=== PATIENT | female | born 1935 | race Caucasian/White ===

== ENCOUNTER 2017-01-02 07:39 | Inpatient (IN) ==
[2017-01-02] MEDS ORDERED: Furosemide 20 MG TABLET PO PRN (10:29)
--- NOTE | 2017-01-02 10:40 | History & Physical Report ---
Date of Encounter: 01/02/17 Time of Encounter: 10:37 24 Hour HP Update - Instructions Instructions: If the History and Physical is less than 30 days old and was completed prior to A.M. admission and or procedure and has NOT been updated on calendar day of procedure please complete this update prior to performing procedure. - Update Patient reports changes in Medical Condition: No Changes in examination, assessment, or condition: No Changes in Medication: No Preop tests/diagnostics Reviewed: Yes - Attending Attestation Please refer to Dr. Buckley's eCW encounter from 12/28/16 for H&P. Pt with PAF, HTN, SSS, HLD, s/p PPM. Admitted for antiarrhythmic initiation. Hx of failed Rythmol and Sotalol 120mg was stopped due to breakthrough PAF and pauses, but now has PPM. Will start increased dose of Sotalol 180mg [id number]. Monitor for 5 doses. Baseline EKG SR with RBBB, QRS 151, QT/QTc 423ms/425ms. Pt is anticoagulated on Coumadin [facility]. Reports INR has not been <2 in the past month and this was confirmed. Check INR today, CBC and BMP. Daily EKGs to monitor QTc <500ms. Pt denies any acute complaints. Prior CV testing: TTE 09/01/2016 ([place]): LVEF 60-65%. Moderate mitral regurgitation. Moderate tricuspid regurgitation. RVSP 44 mmHg. Mild left atrial enlargement. Pharmacological nuclear stress test 11/04/2016 ([place]): No evidence of ischemia. Gated EF 64%. Holter monitor 12/22/2015: Average heart rate 61. Occasional PVCs and PACs. 2 brief episodes of SVT, longest 8 beats. Morphology consistent with atrial tachycardia. [facility] 03/2014: Normal coronary arteries. EF 65%.
[2017-01-02 11:43] LABS: Basophils # 0.1 K/mcL (0.0-0.2); Basophils % 0.5 %; Eosinophils # 0.3 K/mcL (0.0-0.6); Eosinophils % 2.7 %; Hematocrit 40.5 % (35.3-44.9); Hemoglobin 12.9 g/dL (11.5-15.4); Immature Granulocytes % 0.4 % (0-4); Lymphocytes # 2.9 K/mcL (0.6-4.6); Lymphocytes % 30.2 %; Mean Corpuscular HGB Conc 31.9 g/dL (31.6-35.5); Mean Corpuscular Hemoglobin 29.6 pg (28.0-33.3); Mean Corpuscular Volume 92.9 fL (83.0-100.0); Mean Platelet Volume 10.3 fL (9.4-12.4); Monocytes # 0.7 K/mcL (0.0-1.3); Monocytes % 7.3 %; Neutrophils # 5.7 K/mcL (1.6-8.9); Platelet Count 195 K/mcL (140-400); Red Blood Count 4.36 M/mcL (3.82-4.97); Red Cell Distribution Width 14.4 % (11.5-14.5); Segmented Neutrophils % 58.9 %
[2017-01-02 11:44] LABS: INR 2.3; Prothrombin Time 25.6 Seconds (9.4-12.1)
[2017-01-02 13:10] LABS: BUN/Creatinine Ratio 17 (6-26); Blood Urea Nitrogen 13 mg/dL (7-20); Calcium 9.7 mg/dL (8.6-10.8); Carbon Dioxide 26 mEq/L (19-29); Chloride 105 mEq/L (98-109); Glucose 83 mg/dL (70-99); Osmolality,Calculated 289 (280-300); Potassium 4.7 mEq/L (3.5-4.5); Sodium 140 mEq/L (136-145); eGFR For African Americans > 60 (> 60); eGFR For Non-African Americans > 60 (> 60)
--- NOTE | 2017-01-02 17:34 | Electrocardiograph Report ---
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
[2017-01-02] MEDS: *HR* Warfarin 3 MG TABLET PO SCH (17:37)
[2017-01-02] MEDS ORDERED: Warfarin perPT PO PRN (18:00)
[2017-01-02] MEDS: Cholecalciferol (D-3) 1,000 UNIT TABLET PO SCH (22:19)
[2017-01-03 05:07] LABS: INR 2.4; Prothrombin Time 26.6 Seconds (9.4-12.1)
[2017-01-03] MEDS: Cholecalciferol (D-3) 1,000 UNIT TABLET PO SCH ×2 (09:02→21:25)
[2017-01-03] MEDS: amLODIPine 5 MG TABLET PO SCH (09:02)
--- NOTE | 2017-01-03 10:54 | Cardiology Progress Note ---
Date of Encounter: 01/03/17 Time of Encounter: 10:51 Assessment and Plan (1) PAF (paroxysmal atrial fibrillation) Current Visit: Yes Status: Acute Previously on Sotalol, stopped to due pauses, now s/p PPM. Initiating Sotalol at higher dose 180mg Q12 hours. Pt has received 3 doses. QTc this AM 452ms. Decreased Lopressor from 100mg BID to 50mg BID with Sotalol initiation-- tolerating well. 24 hour tele AVG HR 61. Appears to be maintaining SR. Anticoagulated on Coumadin, INR 2.4. INR has been therapeutic >30 days, managed by [facility]. CBC and BMP stable. Monitor for total of 5 doses. Anticipate discharge home tomorrow AM. Pt reports dyspnea since PPM placement. Will order CXR. (2) Encounter for monitoring anti-arrhythmic therapy Current Visit: Yes Status: Acute As above. Discussion w patient/family: The assessment and plan as outlined above was discussed with the patient and/or family members who expressed understanding and agreement. All questions were answered. Thank you for involving us in the care of your patient. Please call with any questions. I will discuss all the above with Dr. Deny Buckley and make changes as necessary. Subjective Principal diagnosis: PAF, antiarrhythmic initation Interval history: Pt reports feeling "okay". States she felt some heart fluttering a little earlier. States since PPM in October she has been more short of breath. Has received 3 doses of Sotalol 180mg. EKG this AM QTc 452ms. Objective Vital Signs, Last 4 Hours Temp Pulse Resp BP Pulse Ox 01/03/17 07:41 98.6 F 60 16 138/63 98 Vital Signs Temp Pulse Resp BP Pulse Ox 01/03/17 07:41 98.6 F 60 16 138/63 98 01/03/17 04:58 98.5 F 60 16 129/50 95 01/03/17 02:09 60 18 149/72 01/02/17 20:00 97.7 F 63 19 138/66 96 01/02/17 16:15 98.2 F 60 16 158/58 95 01/02/17 11:53 98.2 F 60 16 138/67 97 Intake and Output 01/02/17 01/03/17 01/03/17 23:59 07:59 15:59 Intake Total 240 / 240 0 / 0 480 / 480 Output Total 0 / 0 1100 / 1100 Balance 240 / 240 -1100 / -1100 480 / 480 Intake: Oral 240 / 240 0 / 0 480 / 480 Output: Urine 0 / 0 1100 / 1100 Other: Meal Dinner Breakfast Percent of Meal Consumed 100% 100% Stool Size Moderate Stool Color Brown Weight 99.1 kg Patient Weight 01/03/17 23:59 Weight 99.1 kg General: Conversant, No Apparent Distress HEENT: Atraumatic, Normocephaly, Mucus Membranes Moist Neck: No JVD, Normal carotid pulses Cardiac: Reg Rate and Rhythm, Normal S1 and S2, No Murmur Lungs: Normal Breath Sounds, No Wheeze, Rales, Rhonchi Neuro: Alert and responsive, No focal deficits noted Abdomen: Soft, Non-Tender Skin: No rashes noted on visualized skin Musculoskeletal: No Chest Wall Tenderness Extremities: No Clubbing, No Cyanosis, No Edema, Normal Pulses Results 01/02/17 11:31 01/02/17 11:31 Lab Results 01/02/17 01/02/17 01/02/17 11:31 11:31 11:31 WBC 9.7 Hgb 12.9 Hct 40.5 Plt Count 195 INR 2.3 Sodium 140 Potassium 4.7 H Chloride 105 Carbon Dioxide 26 BUN 13 Creatinine 0.77 Glucose 83 Calcium 9.7 01/03/17 03:30 WBC Hgb Hct Plt Count INR 2.4 Sodium Potassium Chloride Carbon Dioxide BUN Creatinine Glucose Calcium Short CBC 01/02/17 Range/Units 11:31 WBC 9.7 (4.3-11.1) K/mcL Hgb 12.9 (11.5-15.4) g/dL Hct 40.5 (35.3-44.9) % Plt Count 195 (140-400) K/mcL Neutrophils # 5.7 (1.6-8.9) K/mcL BMP 01/02/17 Range/Units 11:31 Sodium 140 (136-145) mEq/L Potassium 4.7 H (3.5-4.5) mEq/L Chloride 105 (98-109) mEq/L Carbon Dioxide 26 (19-29) mEq/L BUN 13 (7-20) mg/dL Creatinine 0.77 (0.57-1.11) mg/dL Glucose 83 (70-99) mg/dL Calcium 9.7 (8.6-10.8) mg/dL Active Medications Amlodipine Besylate (Norvasc) 10 mg PO DAILY AILYN Stop: 07/05/17 09:01 Last Admin: 01/03/17 09:02 Dose: 10 mg Furosemide (Lasix) 20 mg PO DAILY PRN PRN Reason: swelling Stop: 07/04/17 10:30 Losartan Potassium (Cozaar) 100 mg PO DAILY AILYN Stop: 07/05/17 09:01 Last Admin: 01/03/17 09:02 Dose: 100 mg Metoprolol Tartrate (Lopressor) 50 mg PO BID AILYN Stop: 07/04/17 21:01 Last Admin: 01/03/17 09:02 Dose: 50 mg Pharmacy Profile Note (Patient Taking Own Medication) 0 each PO DAILY AILYN Stop: 07/05/17 09:01 Sotalol HCl (Betapace) 180 mg PO Q12H AILYN Stop: 07/05/17 02:01 Last Admin: 01/03/17 02:02 Dose: 180 mg Vitamin D (Vitamin D) 1,000 unit PO BID AILYN Stop: 07/04/17 21:01 Last Admin: 01/03/17 09:02 Dose: 1,000 unit Warfarin Sodium (Coumadin Perpt) 1 each PO DAILY@1800 PRN PRN Reason: SEE COMMENTS Stop: 07/04/17 18:01 Warfarin Sodium (Coumadin) 6 mg PO 1800 AILYN Stop: 07/04/17 18:01 Last Admin: 01/02/17 17:37 Dose: 6 mg - EKG Interpretation EKG results cardiology: other (24 hour tele AVG HR 61, SR.) - VTE Reasons for not Prescribing Prophylaxis: Not indicated-Anticoagulated or INR therapeutic Consult Discharge Plan - Plan Referrals: Frederic Lloyd DO [Primary Care Provider] -
[2017-01-03] MEDS: *HR* Warfarin 3 MG TABLET PO SCH (17:02)
[2017-01-03] MEDS ORDERED: Acetaminophen 325 MG TABLET PO PRN (17:04)
--- NOTE | 2017-01-03 17:09 | Electrocardiograph Report ---
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
[2017-01-04] MEDS: Cholecalciferol (D-3) 1,000 UNIT TABLET PO SCH (07:24)
[2017-01-04] MEDS: amLODIPine 5 MG TABLET PO SCH (07:24)
[2017-01-04 11:43] VITALS: BP 134/53
[2017-01-04 12:18] LABS: INR 2.6; Prothrombin Time 29.4 Seconds (9.4-12.1)
[2017-01-04 12:25] LABS: Basophils # 0.1 K/mcL (0.0-0.2); Basophils % 0.5 %; Eosinophils # 0.2 K/mcL (0.0-0.6); Eosinophils % 1.8 %; Hematocrit 35.3 % (35.3-44.9); Immature Granulocytes % 0.2 % (0-4); Lymphocytes # 2.6 K/mcL (0.6-4.6); Lymphocytes % 28.2 %; Mean Corpuscular Hemoglobin 29.4 pg (28.0-33.3); Mean Corpuscular Volume 91.9 fL (83.0-100.0); Mean Platelet Volume 9.6 fL (9.4-12.4); Monocytes # 0.9 K/mcL (0.0-1.3); Monocytes % 9.7 %; Neutrophils # 5.5 K/mcL (1.6-8.9); Platelet Count 258 K/mcL (140-400); Red Blood Count 3.84 M/mcL (3.82-4.97); Red Cell Distribution Width 14.2 % (11.5-14.5); Segmented Neutrophils % 59.6 %
[2017-01-04 12:28] LABS: BUN/Creatinine Ratio 19 (6-26); Blood Urea Nitrogen 14 mg/dL (7-20); Calcium 9.3 mg/dL (8.6-10.8); Carbon Dioxide 25 mEq/L (19-29); Chloride 107 mEq/L (98-109); Glucose 84 mg/dL (70-99); Osmolality,Calculated 290 (280-300); Potassium 4.6 mEq/L (3.5-4.5); Sodium 140 mEq/L (136-145); eGFR For African Americans > 60 (> 60); eGFR For Non-African Americans > 60 (> 60)
[2017-01-04 12:29] LABS: Hemoglobin 11.3 g/dL (11.5-15.4)
[2017-01-04 12:50] LABS: Thyroid Stimulating Hormone 1.236 mcIU/mL (0.350-4.840)
--- NOTE | 2017-01-04 13:06 | Discharge Summary ---
Date of Encounter: 01/04/17 Time of Encounter: 13:04 - Discharge Diagnosis (1) PAF (paroxysmal atrial fibrillation) Priority: Primary Status: Acute Comments: Previously on Sotalol, stopped to due pauses, now s/p PPM so not an issue. Initiated Sotalol at higher dose 180mg Q12 hours. Pt has received 5 doses. QTc remains <500ms. Decreased Lopressor from 100mg BID to 50mg BID with Sotalol initiation-- tolerating well. 24 hour tele AVG HR 61. Appears to be maintaining SR. Anticoagulated on Coumadin, INR 2.6. INR has been therapeutic >30 days, managed by [facility]. CBC and BMP stable. TSH normal. Pt reports dyspnea since PPM placement. CXR negative. Pt had isolated low grade fever of 100.3 overnight, now normal. Denies chills. Denies dysuria. Instructed to monitor at home and call PCP if she were do start developing any symptoms. Reports dizziness this AM, but not new. States she has dizziness at home as well. BP stable. Pt being discharged home in stable condition. Follow-up in 2-3 weeks as outpt. (2) Encounter for monitoring anti-arrhythmic therapy Priority: Primary Status: Acute Comments: As above. - Discharge Medications Prescriptions: Metoprolol [Lopressor] 50 mg PO BID #60 tablet Sotalol [Betapace] 180 mg PO Q12H #90 tablet Home Medications: Amlodipine Besylate 10 mg PO DAILY 02/17/16 [History] Cholecalciferol (D-3) [Vitamin D] 1,000 unit PO BID 02/17/16 [History] Ezetimibe [Zetia] 10 mg PO DAILY 02/17/16 [History] Furosemide [Lasix] 20 mg PO DAILY PRN 02/17/16 [History] Losartan Potassium [Cozaar] 100 mg PO DAILY 02/17/16 [History] Warfarin [Coumadin] 5 mg PO 2XW MDD mon, fri 02/17/16 [History] Warfarin [Coumadin] 7.5 mg PO 5XW MDD tu, , th, sat, sun 02/17/16 [History] Docusate [Colace] 100 mg PO BID PRN 01/02/17 [History] Metoprolol [Lopressor] 50 mg PO BID #60 tablet 01/04/17 [Rx] Sotalol [Betapace] 180 mg PO Q12H #90 tablet 01/04/17 [Rx] Allergies/Adverse Reactions: Allergies codeine Adverse Reaction (Verified 01/02/17 08:22) Confusion diltiazem [From Cardizem] Adverse Reaction (Verified 01/02/17 08:22) Gastrointestinal Upset rofecoxib [From Vioxx] Adverse Reaction (Verified 01/02/17 08:22) See Comments Hhfmvig-Arr-Nhe Reductase Inhibitor [Statins] Adverse Reaction (Verified 08:22) Muscle Pain Procedures/tests Complete & Pending: Procedures Performed prior 72 hours Category Date Time Status ECG 12 lead ECG [ECG] Routine Y 01/02/17 08:30 Completed EKG [ECG 12 lead ECG] [ECG] AM 0600 Y 01/03/17 06:00 Completed EKG [ECG 12 lead ECG] [ECG] AM 0600 Y 01/04/17 06:00 Ordered Date of admission: 01/02/17 07:39 Primary care physician: Frederic Lloyd DO Consults: 01/02/17 11:39 Consult to Invasive Line Access Team [CONS] Routine Reason for Consult: limited IV access Line Type: EPIV PICC line indications: Limited vascular access Time Notified: 11:39 Call Completed: Yes Discharging clinician: Amaury Patterson Anticipated date of discharge: 01/04/17 - Patient Status Disposition: Home, Self-Care Condition: Fair Functional capacity at discharge: independent ambulation Overall status at discharge: patient is back to baseline - Discharge Instructions Follow Up With: Frederic Lloyd DO [Primary Care Provider] - - Diet and Activity Activity: increase activity as tolerated Diet: advance to your usual diet - Hospital Course Hospital course: Ms. Friedman is a 81 year old female with PAF previously on Sotalol, stopped to due pauses, now s/p PPM so she was admitted for re-initiation of Sotalol at higher dose of 180mg Q12 hours. Pt has received 5 doses. QTc remains <500ms. Decreased Lopressor from 100mg BID to 50mg BID with Sotalol initiation--tolerating well. 24 hour tele AVG HR 61. Appears to be maintaining SR. Anticoagulated on Coumadin , INR 2.6. CBC and BMP stable. TSH normal. Pt reports dyspnea since PPM placement. CXR negative. Pt had isolated low grade fever of 100.3 overnight, now normal. Denies chills. Denies dysuria. Instructed to monitor at home and call PCP if she were do start developing any symptoms. Reports dizziness this AM , but not new. States she has dizziness at home as well. BP stable. Pt being discharged home in stable condition. Follow-up in 2-3 weeks as outpt. - Time Spent with Patient Total time spent providing and/or coordinating discharge services: 30 minutes Physical Examination Vital Signs, Last 4 Hours Temp Pulse Resp BP Pulse Ox 01/04/17 11:39 98.2 F 60 16 134/53 95 Vital Signs Temp Pulse Resp BP Pulse Ox 01/04/17 11:39 98.2 F 60 16 134/53 95 01/04/17 07:10 98.1 F 61 16 144/68 98 01/04/17 03:51 97.8 F 60 16 127/52 95 01/03/17 20:15 100.3 F H 63 20 157/64 94 01/03/17 15:37 99.6 F 60 16 146/56 96 Intake and Output 01/03/17 01/04/17 01/04/17 23:59 07:59 15:59 Intake Total 440 / 440 0 / 0 240 / 240 Output Total 300 / 300 1000 / 1000 Balance 140 / 140 -1000 / -1000 240 / 240 Intake: Oral 440 / 440 0 / 0 240 / 240 Output: Urine 300 / 300 1000 / 1000 Other: Meal Dinner Breakfast Percent of Meal Consumed 100% 100% Stool Size Moderate Stool Consistency liquid # Voids 2 2 Weight 99.2 kg Patient Weight 01/04/17 23:59 Weight 99.2 kg General: Conversant, No Apparent Distress HEENT: Atraumatic, Normocephaly, Mucus Membranes Moist Neck: No JVD, Normal carotid pulses Cardiac: Reg Rate and Rhythm, Normal S1 and S2, No Murmur Lungs: Normal Breath Sounds, No Wheeze, Rales, Rhonchi Neuro: Alert and responsive, No focal deficits noted Abdomen: Soft, Non-Tender Skin: No rashes noted on visualized skin Musculoskeletal: No Chest Wall Tenderness Extremities: No Clubbing, No Cyanosis, No Edema, Normal Pulses - VTE Reasons for not Prescribing Prophylaxis: Not indicated-Anticoagulated or INR therapeutic
--- NOTE | 2017-01-04 15:27 | Electrocardiograph Report ---
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
[2017-01-04] MEDS ORDERED: *HR* Warfarin 7.5 MG TABLET PO ONE (18:00)
== END 2017-01-04 15:26 | disposition home or self-care (01) | DRG 310 ==
LOC: 2NENU 07:39
PROVIDERS: ADMIT Internal Medicine Clinical Cardiac Electrophysiology; ATTEND Internal Medicine Clinical Cardiac Electrophysiology

== ENCOUNTER 2017-03-27 12:05 | Inpatient (IN) ==
[2017-03-27] MEDS ORDERED: Naloxone 0.4 MG/ML INJ IVP PRN (14:24)
[2017-03-27] MEDS ORDERED: Acetaminophen 325 MG TABLET PO PRN (14:24)
[2017-03-27] MEDS ORDERED: Ondansetron 4 MG/2 ML VIAL IVP PRN (14:24)
[2017-03-27 14:56] LABS: Basophils # 0.1 K/mcL (0.0-0.2); Basophils % 0.5 %; Eosinophils # 0.4 K/mcL (0.0-0.6); Hematocrit 42.4 % (35.3-44.9); Hemoglobin 13.2 g/dL (11.5-15.4); Immature Granulocytes % 0.2 % (0-4); Lymphocytes # 3.6 K/mcL (0.6-4.6); Lymphocytes % 39.1 %; Mean Corpuscular HGB Conc 31.1 g/dL (31.6-35.5); Mean Corpuscular Hemoglobin 28.7 pg (28.0-33.3); Mean Corpuscular Volume 92.2 fL (83.0-100.0); Mean Platelet Volume 9.3 fL (9.4-12.4); Monocytes # 0.7 K/mcL (0.0-1.3); Monocytes % 7.5 %; Neutrophils # 4.5 K/mcL (1.6-8.9); Platelet Count 291 K/mcL (140-400); Red Cell Distribution Width 15.3 % (11.5-14.5); Segmented Neutrophils % 48.7 %
[2017-03-27 15:04] LABS: Prothrombin Time 22.3 Seconds (9.4-12.1)
[2017-03-27 15:09] LABS: Alanine Aminotransferase 18 Units/L (0-55); Albumin 3.7 g/dL (3.5-5.0); Albumin/Globulin Ratio 0.8 (1.1-2.2); Alkaline Phosphatase 106 Units/L (38-126); Aspartate Amino Transferase 18 Units/L (5-34); BUN/Creatinine Ratio 11 (6-26); Bilirubin,Total 0.5 mg/dL (0.2-1.2); Blood Urea Nitrogen 9 mg/dL (7-20); Carbon Dioxide 30 mEq/L (19-29); Chloride 102 mEq/L (98-109); Globulin 4.4 g/dL (2.4-3.5); Glucose 97 mg/dL (70-99); Magnesium 1.9 mg/dL (1.6-2.6); Osmolality,Calculated 287 (280-300); Potassium 4.3 mEq/L (3.5-4.5); Sodium 139 mEq/L (136-145); Total Protein 8.1 g/dL (6.0-8.3); eGFR For African Americans > 60 (> 60); eGFR For Non-African Americans > 60 (> 60)
--- NOTE | 2017-03-27 15:09 | History & Physical Report ---
Date of Encounter: 03/27/17 Time of Encounter: 14:40 24 Hour HP Update - Instructions Instructions: If the History and Physical is less than 30 days old and was completed prior to A.M. admission and or procedure and has NOT been updated on calendar day of procedure please complete this update prior to performing procedure. - Update Patient reports changes in Medical Condition: No Changes in examination, assessment, or condition: No Changes in Medication: Yes Review of Patient reveals the following changes:: Sotalol 120 mg Q12H stoppped on 03/23/17 after PM dose. - Pre-Operative Checklist Is VTE Prophylaxis Indicated?: NO (on Coumadin) - Attending Attestation Please refer to eCW clinic note on 03/08/[address] Deny Buckley for full H&P. Patient presents today for elective initiation antiarrhythmic, Tikosyn for symptomatic PAF. Failed sotalol. Will require inpatient monitoring for at least 72 hours after starting Tikosyn. Anticoagulated on Coumadin, INR followed by [facility]. INRs have been therapeutic > 30 days-- 2.8 on 03/07/17 and 2.1 on 01/31/17. Order placed for pharmacy to dose/ monitor Coumadin as inpatient. Last dose of sotalol was 03/23/17 PM dose. SR upon exam. Baseline ECG: HR 62 bpm RBBB QRS 146 ms QT/QTc 442, 448 ms Obtain stat CMP, CBC, PT/INR, and Mag. Recent CV testing: Regadenoson Nuclear 11/04/16 ([facility]): perfusion imaging negative for ischemia or infarct. Gated EF=64% TTE 09/01/16: LVEF 60-65%, normal LV size and preserved LV function, no LVH, moderate MR, moderate TR, LA mildly enlarged. The patient will be discussed and reviewed with Dr. Deny Buckley.
[2017-03-27] MEDS: Furosemide 20 MG TABLET PO SCH (16:35)
[2017-03-27] MEDS ORDERED: Warfarin perPT PO PRN (18:00)
[2017-03-27] MEDS ORDERED: *HR* Warfarin 5 MG TABLET PO SCH (18:00)
[2017-03-27] MEDS: amLODIPine 5 MG TABLET PO SCH (20:08)
[2017-03-27] MEDS: EZETIMIBE 5 MG PO SCH (21:04)
[2017-03-27] MEDS: Cholecalciferol (D-3) 1,000 UNIT TABLET PO SCH (21:05)
[2017-03-28 06:06] LABS: INR 2.2; Prothrombin Time 24.3 Seconds (9.4-12.1)
[2017-03-28 08:47] LABS: BUN/Creatinine Ratio 12 (6-26); Blood Urea Nitrogen 10 mg/dL (7-20); Carbon Dioxide 29 mEq/L (19-29); Chloride 104 mEq/L (98-109); Glucose 122 mg/dL (70-99); Osmolality,Calculated 294 (280-300); Potassium 4.1 mEq/L (3.5-4.5); Sodium 142 mEq/L (136-145); eGFR For African Americans > 60 (> 60); eGFR For Non-African Americans > 60 (> 60)
[2017-03-28] MEDS: Cholecalciferol (D-3) 1,000 UNIT TABLET PO SCH (09:37)
--- NOTE | 2017-03-28 11:46 | Cardiology Progress Note ---
Date of Encounter: 03/28/17 Time of Encounter: 08:00 Assessment and Plan (1) PAF (paroxysmal atrial fibrillation) Current Visit: No Status: Acute Presented on 03/27/17 for Tikosyn initiation for symptomatic PAF. Hx of failed sotalol therapy. Last dose of sotalol on 03/23/17 PM dose. Converted to Afib yesterday, avg OW=049 overnight. s/p 2 doses of Tikosyn this AM. ECG after 1st dose 03/27/17 at 23:09: HR 114 (afib) QRS 145 QT/QTc 385, 453 ms. Kidney function remained normal; discussed with Dr. Deny Buckley who will continue Tikosyn 500 mcg Q12H. Calculated creatinine clearance=89.06 mL/min Will require inpatient monitoring for at least 72 hours after starting Tikosyn. May require DCCV (possible AM) after 5th dose if remains in AFib. Will continue to monitor HR, tele, labs, and ECG. Anticoagulated on Coumadin, INR followed by [facility]. INRs have been therapeutic > 30 days-- 2.8 on 03/07/17 and 2.1 on 01/31/17. Order placed for pharmacy to dose/ monitor Coumadin as inpatient. (2) Encounter for monitoring anti-arrhythmic therapy Current Visit: Yes Status: Acute Plan as above. (3) SSS (sick sinus syndrome) Current Visit: Yes Status: Acute s/p cardiac pacemaker. Routinely follows with [facility] (4) Essential (primary) hypertension Current Visit: Yes Status: Acute Controlled as inpatient; will continue to monitor. Discussion w patient/family: The assessment and plan as outlined above was discussed with the patient and/or family members who expressed understanding and agreement. All questions were answered. Thank you for involving us in the care of your patient. Please call with any questions. The patient was discussed and reviewed with Dr. Deny Buckley who agrees with plan as stated above. Subjective Principal diagnosis: Afib, Tikosyn Interval history: Patient seen and examined earlier this AM. s/p 1 dose of Tikosyn last night, next dose due at 9AM this morning. Reports palpitations overnight, afib noted per monitor at bedside. Objective Vital Signs, Last 4 Hours Temp Pulse Resp BP Pulse Ox 03/28/17 11:09 98.0 F 124 16 140/78 94 08/01/17 08:02 98.5 F 185 16 125/93 98 General: Conversant, No Apparent Distress HEENT: Atraumatic, Normocephaly, Mucus Membranes Moist Cardiac: Other (irregularly irregular) Lungs: Normal Breath Sounds Neuro: Alert and responsive Abdomen: Soft Skin: No rashes noted on visualized skin Musculoskeletal: No Chest Wall Tenderness Extremities: No Edema, Normal Pulses Results 03/27/17 14:46 03/28/17 08:24 Lab Results 03/27/17 03/27/17 03/27/17 14:46 14:46 14:46 WBC 9.3 Hgb 13.2 Hct 42.4 Plt Count 291 INR 2.0 Sodium 139 Potassium 4.3 Chloride 102 Carbon Dioxide 30 H BUN 9 Creatinine 0.79 Glucose 97 Calcium 10.0 Magnesium 1.9 Total Bilirubin 0.5 AST 18 ALT 18 Alkaline Phosphatase 106 03/28/17 03/28/17 05:34 08:24 WBC Hgb Hct Plt Count INR 2.2 Sodium 142 Potassium 4.1 Chloride 104 Carbon Dioxide 29 BUN 10 Creatinine 0.81 Glucose 122 H Calcium 10.0 Magnesium Total Bilirubin AST ALT Alkaline Phosphatase Active Medications Acetaminophen (Tylenol) 650 mg PO Q6HR PRN PRN Reason: Mild Pain (1-3) Stop: 09/26/17 14:25 Amlodipine Besylate (Norvasc) 10 mg PO HS [facility] Stop: 09/26/17 21:01 Last Admin: 03/27/17 20:08 Dose: 10 mg Docusate Sodium (Colace) 100 mg PO BID PRN; Protocol PRN Reason: Constipation Stop: 09/26/17 15:00 Dofetilide (Tikosyn) 0.5 mg PO BID [facility] Stop: 09/26/17 21:01 Last Admin: 03/28/17 09:37 Dose: 0.5 mg Furosemide (Lasix) 20 mg PO Q48H [facility] Stop: 09/26/17 15:01 Last Admin: 03/27/17 16:35 Dose: 20 mg Losartan Potassium (Cozaar) 100 mg PO DAILY [facility] Stop: 09/27/17 09:01 Last Admin: 03/28/17 09:37 Dose: 100 mg Naloxone HCl (Narcan) 0.4 mg IVP Q2MIN PRN PRN Reason: Opioid Reversal Stop: 09/26/17 14:25 Ondansetron HCl (Zofran) 4 mg IVP Q8HR PRN PRN Reason: Nausea And Vomiting Stop: 09/26/17 14:25 Pharmacy Profile Note (Patient Taking Own Medication) 0 each PO HS [facility] Stop: 09/26/17 21:01 Last Admin: 03/27/17 21:04 Dose: Not Given Vitamin D (Vitamin D) 1,000 unit PO DAILY [facility] Stop: 09/26/17 21:01 Last Admin: 03/28/17 09:37 Dose: 1,000 unit Warfarin Sodium (Coumadin Perpt) 1 each PO DAILY@1800 PRN PRN Reason: SEE COMMENTS Stop: 09/26/17 18:01 Warfarin Sodium (Coumadin) 5 mg PO MOFR@1800 [facility] Stop: 09/26/17 18:01 Last Admin: 03/27/17 17:55 Dose: 5 mg Warfarin Sodium (Coumadin) 7.5 mg PO SUTUWETHSA@1800 AILYN Stop: 09/27/17 18:01 - Imaging and Cardiology Stress Test: report reviewed Echo: report reviewed Other Results: 12 hour tele: avg ED=492. Episodes of AT noted overnight. AF at bedside - EKG Interpretation EKG results cardiology: personally reviewed - VTE Reasons for not Prescribing Prophylaxis: Not indicated-Anticoagulated or INR therapeutic Consult Discharge Plan - Plan Referrals: Cookie May CNP [Advanced Practice Nurse] - 04/05/17 10:30 am Frederic Lloyd DO [Primary Care Provider] -
--- NOTE | 2017-03-28 15:23 | Electrocardiograph Report ---
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
--- NOTE | 2017-03-28 15:31 | Electrocardiograph Report ---
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
--- NOTE | 2017-03-28 15:32 | Electrocardiograph Report ---
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
--- NOTE | 2017-03-28 15:37 | Electrocardiograph Report ---
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
[2017-03-28] MEDS ORDERED: *HR* Warfarin 7.5 MG TABLET PO SCH (18:00)
[2017-03-28] MEDS: EZETIMIBE 5 MG PO SCH (21:18)
[2017-03-28] MEDS: amLODIPine 5 MG TABLET PO SCH (21:37)
[2017-03-29 05:32] LABS: INR 2.6; Prothrombin Time 28.5 Seconds (9.4-12.1)
[2017-03-29] MEDS: Cholecalciferol (D-3) 1,000 UNIT TABLET PO SCH (09:18)
--- NOTE | 2017-03-29 10:49 | Cardiology Progress Note ---
Date of Encounter: 03/29/17 Time of Encounter: 10:45 Assessment and Plan (1) PAF (paroxysmal atrial fibrillation) Current Visit: Yes Status: Acute Presented on 03/27/17 for Tikosyn initiation for symptomatic PAF. Hx of failed sotalol therapy. Last dose of sotalol on 03/23/17 PM dose. Now in SR, avg HR= 73 SR, paced at times. s/p 4 doses of Tikosyn this AM QTc has remained less than 500 ms. Given baseline RBBB, dose adjustment not indicated until QTc >550 ms. Most recent ECG: HR 70 SR QT/QTc 473/495 ms. Calculated creatinine clearance= 89.06 mL/min Will require inpatient monitoring for at least 72 hours after starting Tikosyn. May require DCCV (possible AM) after if AFib recurs. Will continue to monitor HR, tele, labs, and ECG. Anticoagulated on Coumadin, INR followed by [facility]. INRs have been therapeutic > 30 days-- 2.8 on 03/07/17 and 2.1 on 01/31/17. Order placed for pharmacy to dose/ monitor Coumadin as inpatient. (2) Encounter for monitoring anti-arrhythmic therapy Current Visit: Yes Status: Acute Plan as above. (3) SSS (sick sinus syndrome) Current Visit: Yes Status: Acute s/p cardiac pacemaker. Routinely follows with [facility] (4) Essential (primary) hypertension Current Visit: Yes Status: Acute Controlled as inpatient; will continue to monitor. Discussion w patient/family: The assessment and plan as outlined above was discussed with the patient and/or family members who expressed understanding and agreement. All questions were answered. Thank you for involving us in the care of your patient. Please call with any questions. The patient was discussed and reviewed with Dr. Deny Buckley who agrees with plan as stated above. Subjective Principal diagnosis: Afib, Tikosyn Interval history: Patient seen and examined. Now in SR; s/p 4 doses of Tikosyn. Reports slept well overnight, no recurrent palpitations. She has no other complaints upon exam this AM. Objective Vital Signs, Last 4 Hours Temp Pulse Resp BP Pulse Ox 03/29/17 10:33 98.4 F 75 16 133/59 98 03/29/17 07:53 98.1 F 78 18 96 General: Conversant, No Apparent Distress HEENT: Atraumatic, Normocephaly, Mucus Membranes Moist Cardiac: Reg Rate and Rhythm, Normal S1 and S2 Lungs: Normal Breath Sounds Neuro: Alert and responsive Abdomen: Soft Skin: No rashes noted on visualized skin Musculoskeletal: No Chest Wall Tenderness Extremities: No Edema, Normal Pulses Results 03/27/17 14:46 03/28/17 08:24 Lab Results 03/29/17 05:18 INR 2.6 Active Medications Acetaminophen (Tylenol) 650 mg PO Q6HR PRN PRN Reason: Mild Pain (1-3) Stop: 09/26/17 14:25 Amlodipine Besylate (Norvasc) 10 mg PO HS [facility] Stop: 09/26/17 21:01 Last Admin: 03/28/17 21:37 Dose: 10 mg Docusate Sodium (Colace) 100 mg PO BID PRN; Protocol PRN Reason: Constipation Stop: 09/26/17 15:00 Dofetilide (Tikosyn) 0.5 mg PO BID [facility] Stop: 09/26/17 21:01 Last Admin: 03/29/17 09:18 Dose: 0.5 mg Furosemide (Lasix) 20 mg PO Q48H [facility] Stop: 09/26/17 15:01 Last Admin: 03/27/17 16:35 Dose: 20 mg Losartan Potassium (Cozaar) 100 mg PO DAILY [facility] Stop: 09/27/17 09:01 Last Admin: 03/29/17 09:18 Dose: 100 mg Naloxone HCl (Narcan) 0.4 mg IVP Q2MIN PRN PRN Reason: Opioid Reversal Stop: 09/26/17 14:25 Ondansetron HCl (Zofran) 4 mg IVP Q8HR PRN PRN Reason: Nausea And Vomiting Stop: 09/26/17 14:25 Pharmacy Profile Note (Patient Taking Own Medication) 0 each PO HS [facility] Stop: 09/26/17 21:01 Last Admin: 03/28/17 21:18 Dose: Not Given Vitamin D (Vitamin D) 1,000 unit PO DAILY [facility] Stop: 09/26/17 21:01 Last Admin: 03/29/17 09:18 Dose: 1,000 unit Warfarin Sodium (Coumadin Perpt) 1 each PO DAILY@1800 PRN PRN Reason: SEE COMMENTS Stop: 09/26/17 18:01 Warfarin Sodium (Coumadin) 5 mg PO MOFR@1800 [facility] Stop: 09/26/17 18:01 Last Admin: 03/27/17 17:55 Dose: 5 mg Warfarin Sodium (Coumadin) 7.5 mg PO SUTUWETHSA@1800 [facility] Stop: 09/27/17 18:01 Last Admin: 03/28/17 16:46 Dose: 7.5 mg - Imaging and Cardiology Stress Test: report reviewed Echo: report reviewed Other Results: 12 hour tele: avg HR=73 SR. paced at times. - EKG Interpretation EKG results cardiology: personally reviewed - VTE Reasons for not Prescribing Prophylaxis: Not indicated-Anticoagulated or INR therapeutic Consult Discharge Plan - Plan Referrals: Cookie May, SENIOR WATER RESOURCES ENGINEER [Advanced Practice Nurse] - 04/05/17 10:30 am Frederic Lloyd DO [Primary Care Provider] -
[2017-03-29] MEDS: Furosemide 20 MG TABLET PO SCH (14:47)
[2017-03-29] MEDS ORDERED: *HR* Warfarin 5 MG TABLET PO ONE (18:00)
--- NOTE | 2017-03-29 21:58 | Electrocardiograph Report ---
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
[2017-03-29] MEDS: amLODIPine 5 MG TABLET PO SCH (22:22)
[2017-03-29] MEDS: EZETIMIBE 5 MG PO SCH (22:23)
--- NOTE | 2017-03-29 22:55 | Electrocardiograph Report ---
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
[2017-03-30 06:22] LABS: INR 2.6; Prothrombin Time 29.4 Seconds (9.4-12.1)
[2017-03-30] MEDS: Cholecalciferol (D-3) 1,000 UNIT TABLET PO SCH (09:23)
--- NOTE | 2017-03-30 10:25 | Cardiology Progress Note ---
Date of Encounter: 03/30/17 Time of Encounter: 10:00 Assessment and Plan (1) PAF (paroxysmal atrial fibrillation) Current Visit: Yes Status: Acute Presented on 03/27/17 for Tikosyn initiation for symptomatic PAF. Hx of failed sotalol therapy. Last dose of sotalol on 03/23/17 PM dose. Now in SR, avg HR= 75 SR, paced at times. s/p 5 doses of Tikosyn this AM QTc has remained less than 500 ms. Given baseline RBBB, dose adjustment not indicated until QTc >550 ms. Most recent ECG: HR 68 SR QT/QTc 492/509 ms, reviewed with Dr. Deny Buckley, will continue current dose. Calculated creatinine clearance=89.06 mL/min Will require inpatient monitoring for at least 72 hours after starting Tikosyn-- first dose 03/27/17 at 2100. Plan for discharge to home in AM. Will continue to monitor HR, tele, labs, and ECG. Anticoagulated on Coumadin, INR followed by [facility]. INRs have been therapeutic > 30 days-- 2.8 on 03/07/17 and 2.1 on 01/31/17. Order placed for pharmacy to dose/ monitor Coumadin as inpatient. (2) Encounter for monitoring anti-arrhythmic therapy Current Visit: Yes Status: Acute Plan as above. (3) SSS (sick sinus syndrome) Current Visit: Yes Status: Acute s/p cardiac pacemaker. Routinely follows with [facility] (4) Essential (primary) hypertension Current Visit: Yes Status: Acute Controlled as inpatient; will continue to monitor. Discussion w patient/family: The assessment and plan as outlined above was discussed with the patient and/or family members who expressed understanding and agreement. All questions were answered. Thank you for involving us in the care of your patient. Please call with any questions. The patient was discussed and reviewed with Dr. Deny Buckley who agrees with plan as stated above. Subjective Principal diagnosis: Afib, Tikosyn Interval history: Patient seen and examined. Now in SR; s/p 5 doses of Tikosyn. Reports slept well overnight, no recurrent palpitations. She has no other complaints upon exam this AM. Objective Vital Signs, Last 4 Hours Temp Pulse Resp BP Pulse Ox 03/30/17 07:26 97.2 F L 93 16 144/66 97 General: Conversant, No Apparent Distress HEENT: Atraumatic, Normocephaly, Mucus Membranes Moist Neck: No JVD, Normal carotid pulses Cardiac: Reg Rate and Rhythm, Normal S1 and S2, No Murmur Lungs: Normal Breath Sounds, No Wheeze, Rales, Rhonchi Neuro: Alert and responsive, No focal deficits noted Abdomen: Soft, Non-Tender Skin: No rashes noted on visualized skin Musculoskeletal: No Chest Wall Tenderness Extremities: No Clubbing, No Cyanosis, No Edema, Normal Pulses Results 03/27/17 14:46 03/28/17 08:24 Lab Results 03/30/17 05:35 INR 2.6 Active Medications Acetaminophen (Tylenol) 650 mg PO Q6HR PRN PRN Reason: Mild Pain (1-3) Stop: 09/26/17 14:25 Amlodipine Besylate (Norvasc) 10 mg PO HS [facility] Stop: 09/26/17 21:01 Last Admin: 03/29/17 22:22 Dose: 10 mg Docusate Sodium (Colace) 100 mg PO BID PRN; Protocol PRN Reason: Constipation Stop: 09/26/17 15:00 Dofetilide (Tikosyn) 0.5 mg PO BID [facility] Stop: 09/26/17 21:01 Last Admin: 03/30/17 09:23 Dose: 0.5 mg Furosemide (Lasix) 20 mg PO Q48H [facility] Stop: 09/26/17 15:01 Last Admin: 03/29/17 14:47 Dose: 20 mg Losartan Potassium (Cozaar) 100 mg PO DAILY [facility] Stop: 09/27/17 09:01 Last Admin: 03/30/17 09:23 Dose: 100 mg Naloxone HCl (Narcan) 0.4 mg IVP Q2MIN PRN PRN Reason: Opioid Reversal Stop: 09/26/17 14:25 Ondansetron HCl (Zofran) 4 mg IVP Q8HR PRN PRN Reason: Nausea And Vomiting Stop: 09/26/17 14:25 Pharmacy Profile Note (Patient Taking Own Medication) 0 each PO HS [facility] Stop: 09/26/17 21:01 Last Admin: 03/29/17 22:23 Dose: Not Given Vitamin D (Vitamin D) 1,000 unit PO DAILY [facility] Stop: 09/26/17 21:01 Last Admin: 03/30/17 09:23 Dose: 1,000 unit Warfarin Sodium (Coumadin Perpt) 1 each PO DAILY@1800 PRN PRN Reason: SEE COMMENTS Stop: 09/26/17 18:01 Warfarin Sodium (Coumadin) 7.5 mg PO 1800 [facility] Stop: 03/30/17 18:01 - Imaging and Cardiology Stress Test: report reviewed Echo: report reviewed Other Results: 12 hour tele: avg HR=75 SR, RBBB. No significant event noted. - EKG Interpretation EKG results cardiology: personally reviewed - VTE Reasons for not Prescribing Prophylaxis: Not indicated-Anticoagulated or INR therapeutic Consult Discharge Plan - Plan Referrals: Cookie May, METAL TESTER [Advanced Practice Nurse] - 04/05/17 10:30 am Frederic Lloyd DO [Primary Care Provider] -
[2017-03-30] MEDS ORDERED: *HR* Warfarin 7.5 MG TABLET PO ONE (18:00)
[2017-03-30] MEDS: amLODIPine 5 MG TABLET PO SCH (20:57)
[2017-03-30] MEDS: EZETIMIBE 5 MG PO SCH (20:59)
[2017-03-31 05:12] LABS: INR 2.5; Prothrombin Time 27.6 Seconds (9.4-12.1)
[2017-03-31 06:43] VITALS: BP 130/66
--- NOTE | 2017-03-31 08:20 | Discharge Summary ---
Date of Encounter: 03/31/17 Time of Encounter: 08:00 - Discharge Diagnosis (1) PAF (paroxysmal atrial fibrillation) Priority: Primary Status: Acute Comments: s/p Tikosyn initiation, QTc remained less than 550 ms. (2) Encounter for monitoring anti-arrhythmic therapy Priority: Primary Status: Acute (3) SSS (sick sinus syndrome) Priority: Secondary Status: Acute (4) Essential (primary) hypertension Priority: Secondary Status: Acute - Discharge Medications Home Medications: Amlodipine Besylate 10 mg PO DAILY 02/17/16 [History] Cholecalciferol (D-3) [Vitamin D] 1,000 unit PO DAILY 02/17/16 [History] Ezetimibe [Zetia] 5 mg PO DAILY 02/17/16 [History] Furosemide [Lasix] 20 mg PO Q48H 02/17/16 [History] Losartan Potassium [Cozaar] 100 mg PO DAILY 02/17/16 [History] Warfarin [Coumadin] 5 mg PO MOFR 02/17/16 [History] Warfarin [Coumadin] 7.5 mg PO SUTUWETHSA 02/17/16 [History] Docusate [Colace] 100 mg PO BID PRN 01/02/17 [History] Dofetilide [Tikosyn] 0.5 mg PO BID 03/31/17 [Rx] Allergies/Adverse Reactions: Allergies codeine Adverse Reaction (Verified 01/02/17 08:22) Confusion diltiazem [From Cardizem] Adverse Reaction (Verified 01/02/17 08:22) Gastrointestinal Upset rofecoxib [From Vioxx] Adverse Reaction (Verified 01/02/17 08:22) See Comments Jqorywi-Vic-Joh Reductase Inhibitor [Statins] Adverse Reaction (Verified 08:22) Muscle Pain Procedures/tests Complete & Pending: Procedures Performed prior 72 hours Category Date Time Status ECG 12 lead ECG [ECG] Routine Y 03/28/17 12:12 Completed ECG 12 lead ECG [ECG] Routine Y 03/28/17 16:43 Completed ECG 12 lead ECG [ECG] Routine Y 03/29/17 00:07 Completed ECG 12 lead ECG [ECG] Routine Y 03/29/17 11:42 Completed ECG 12 lead ECG [ECG] Routine Y 03/30/17 23:21 Completed Date of admission: 03/27/17 14:13 Primary care physician: Frederic Lloyd DO Discharging clinician: Helen Santos Anticipated date of discharge: 03/31/17 - Patient Status Disposition: Home, Self-Care Condition: Good Functional capacity at discharge: independent ambulation Overall status at discharge: patient is back to baseline - Discharge Instructions Follow Up With: Cookie May CNP [Advanced Practice Nurse] - 04/05/17 10:30 am Frederic Lloyd DO [Primary Care Provider] - Deny Buckley MD [Partnered Physician] - 04/11/17 8:45 am - Diet and Activity Activity: resume usual activities as tolerated Diet: advance to your usual diet - Hospital Course Hospital course: Ms. Friedman is a 81 year old female who presented on 03/27/17 for Tikosyn initiation for symptomatic PAF. Hx of failed sotalol therapy. She was monitored for 72+ hours on Tikosyn, through 5+ doses. She has been in NSR, spontaneously converted to NSR, for the past 48+ hours, QTc has remained less than 550 ms throughout stay (baseline ECG RBBB). Anticoagulated on Coumadin, INR therapeutic ; she will follow-up with the Coumadin clinic as scheduled. Labs including kidney function, telemetry, and vital signs have been stable. She has no complaints this morning upon exam. Reviewed ECG's/plan with Dr. Deny Buckley who agrees with plan. Ms. Friedman is being prepped for discharge to home in stable condition. Co-pay for Tikosyn 500 mcg Q12H= $1.00 per month, paper Rx provided by Dr. Deny Buckley upon discharge. She will follow-up with Dr. Deny Buckley on 04/11/17 at 9:45 AM. - Time Spent with Patient Total time spent providing and/or coordinating discharge services: Specific discharge activities: Resume activity as tolerated. Physical Examination Vital Signs, Last 4 Hours Temp Pulse Resp BP Pulse Ox 03/31/17 06:42 98.1 F 66 16 130/66 96 General: Conversant, No Apparent Distress HEENT: Atraumatic, Normocephaly, Mucus Membranes Moist Neck: No JVD, Normal carotid pulses Cardiac: Reg Rate and Rhythm, Normal S1 and S2, No Murmur Lungs: Normal Breath Sounds, No Wheeze, Rales, Rhonchi Neuro: Alert and responsive, No focal deficits noted Abdomen: Soft, Non-Tender Skin: No rashes noted on visualized skin Musculoskeletal: No Chest Wall Tenderness Extremities: No Clubbing, No Cyanosis, No Edema, Normal Pulses - VTE Reasons for not Prescribing Prophylaxis: Not indicated-Anticoagulated or INR therapeutic
[2017-03-31] MEDS: Cholecalciferol (D-3) 1,000 UNIT TABLET PO SCH (09:03)
--- NOTE | 2017-03-31 11:36 | Electrocardiograph Report ---
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
--- NOTE | 2017-03-31 11:37 | Electrocardiograph Report ---
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
--- NOTE | 2017-03-31 11:44 | Electrocardiograph Report ---
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
[2017-03-31] MEDS ORDERED: *HR* Warfarin 5 MG TABLET PO ONE (18:00)
== END 2017-03-31 10:03 | disposition home or self-care (01) | DRG 310 ==
LOC: 2NNU 14:13
PROVIDERS: ADMIT Internal Medicine Clinical Cardiac Electrophysiology; ATTEND Internal Medicine Clinical Cardiac Electrophysiology

== ENCOUNTER 2018-03-03 08:42 | Inpatient (IN) ==
[2018-03-03] MEDS ORDERED: Naloxone 0.4 MG/ML INJ IVP PRN (13:09)
--- NOTE | 2018-03-03 13:41 | Internal Med History&Physical ---
Date of Encounter: 03/03/18 Time of Encounter: 13:35 Internal Medicine - H&P: HPI Chief complaint: Dizzinesss, diarrhea and elevated heart rate History of present illness: Ms. Friedman is a 82 year old female with pmh of a fib and hypertension presentiong with complaints of feeling light headed while trying to get off the commode at 3am this morning and having call her and 911 for help who brought her to the ER. Patient notes she had some pizza last night after which she began to have nausea and vomiting followed by several episodes of diarrhea. She denies any fevers, chills or abdominal pain or any other acute symptoms. When she got to the ER due to light headedness, she was noted to be in afib with RVR with HR in the 130s. She refused a cardizem drip because she says it made her black out in the past, so she was given her home dose of dofetilide. Heart rate is currently in the 70s, but patient is still light headed Past Med Surg Social Fam HX - Past Medical History Medical history: arthritis, atrial fibrillation, cancer, hypertension Additional medical history: breast cancer, skin cancer, nodules on thyroid Psychiatric history: no psych history - Past Surgical History Surgical History: breast surgery, pacemaker Additional surgical history: right breast lumpectomy, melanoma excision from neck, tubal, vein stripping,. D&C, bell 11-14-2016, THYROID SX 1965. - Social History Smoking Status: Never smoker Alcohol use: none Drug use: none - Family History Mother Living Status: Hx Family Cardiac Disorders: Yes (OPEN HEART SX) Hx Family Endocrine Disorder: Yes (DM) Father Living Status: Hx Family Cancer: Yes (BRAIN) Internal Medicine - H&P: Meds Amlodipine Besylate 10 mg PO DAILY 02/17/16 [History] Cholecalciferol (D-3) [Vitamin D] 1,000 unit PO DAILY 02/17/16 [History] Furosemide [Lasix] 20 mg PO Q48H 02/17/16 [History] Losartan Potassium [Cozaar] 100 mg PO DAILY 02/17/16 [History] Warfarin [Coumadin] 5 mg PO MOFR 02/17/16 [History] Warfarin [Coumadin] 7.5 mg PO SUTUWETHSA 02/17/16 [History] Docusate [Colace] 100 mg PO BID PRN 01/02/17 [History] Dofetilide [Tikosyn] 0.5 mg PO BID 03/31/17 [Rx] Carbidopa/Levodopa [Carbidopa-Levodopa 10-100 Tab] 1 tab PO TID 03/03/18 [ History] 3 Allergy/AdvReac Type Severity Reaction Status Date / Time codeine AdvReac Confusion Verified 01/02/17 08:22 diltiazem [From Cardizem] AdvReac Gastrointestinal Verified 01/02/17 08:22 Upset rofecoxib [From Vioxx] AdvReac See Verified 01/02/17 08:22 Comments Seubxag-Uki-Ddc Reductase AdvReac Muscle Pain Verified 01/02/17 08:22 Inhibitor [Statins] All Systems PM: A 10-system review of systems was performed and is negative for pertinent findings except as documented above in the HPI. - Constitutional Constitutional: no chills, no fever(s), no night sweats - EENT Eyes: no change in vision, no discharge, no pain, no photophobia Ears: no ear discharge, no ear pain, no tinnitus Nose, mouth and throat: no dysphagia, no nasal discharge, no neck pain, no sore throat - Cardiovascular Cardiovascular ROS IM: lightheadedness, no chest pain, no diaphoresis, no dyspnea, no palpitations, no syncope - Respiratory Respiratory: no cough, no dyspnea, no wheezing, no excessive phlegm production - Gastrointestinal Gastrointestinal: diarrhea, nausea, no abdominal pain, no hematemesis, no hematochezia, no melena, no vomiting - Genitourinary Genitourinary: no change in urinary stream, no dysuria, no flank pain, no hematuria - Musculoskeletal Musculoskeletal ROS IM: no numbness, no tingling - Integumentary Integumentary IM: no rash, no unusual bruising - Neurological Neurological ROS: no confusion, no convulsions, no focal weakness, no numbness, no tingling, no tremor(s) - Hematologic/Lymphatic Hematologic/Lymphatic: no easy bruising - Constitutional Vitals: Temp Pulse Resp BP Pulse Ox 98 F 69 17 134/61 95 03/03/18 10:49 03/03/18 10:49 03/03/18 10:49 03/03/18 10:49 03/03/18 10:49 - Head Head exam: Present: atraumatic, normocephalic - Eye Eye exam: Present: PERRL, conjuntiva pink, sclera anicteric Pupils: Present: PERRL - Neck Neck exam general surgery: Present: supple, trachea midline. Absent: lymphadenopathy - Respiratory Respiratory exam: Present: CTAB. Absent: accessory muscle use, rales, rhonchi, wheezes - Cardiovascular Cardiovascular exam: Present: RRR, +S1, +S2. Absent: diastolic murmur, gallop, rubs, systolic murmur - GI/Abdominal GI/Abdominal exam: Present: normal bowel sounds, soft, no peritoneal signs. Absent: distended, tenderness - Extremities Exam Extremities exam: Present: warm, radial pulses palpable and symmetrical. Absent : calf tenderness, cyanotic, pedal edema - Neurological Exam Neurological exam: Present: CN II-XII intact, oriented X3, no focal deficits. Absent: pronater drift, facial droop, speech deficit - Skin Skin exam: Present: dry, intact - Assessment and plan (1) Atrial fibrillation with RVR Current Visit: No Status: Acute Assessment and plan: Refused cardizem in ER. Was restarted on dofetilide with control of her heart rate. Continue IV fluids.On coumadin for a fib (2) Pre-syncope Current Visit: No Status: Acute Assessment and plan: Continue IV fluids (3) Gastroenteritis Current Visit: Yes Status: Acute Assessment and plan: Has a leukocytosis with diarrhea. Started on flagyl. F/U stool cultures, blood cultures. Cipro held due to QT prolongation (4) Essential (primary) hypertension Current Visit: No Status: Acute Assessment and plan: Continue amlodipine (5) Leukocytosis Current Visit: Yes Status: Acute Assessment and plan: R/o sepsis vs dehydration. Continue fluids and antibiotics. F/U cultures Qualifiers: Leukocytosis type: unspecified Qualified Code(s): D72.829 - Elevated white blood cell count, unspecified (6) DVT prophylaxis Current Visit: Yes Status: Acute Assessment and plan: On coumadin - Time Spent With Patient Total time spent is greater than 50% in coordination of care (as documented) at patient's floor/unit and/or counseling patient:
[2018-03-03] MEDS: 0.9 % Sodium Chloride 1,000 ML IVC SCH (14:23)
[2018-03-03] MEDS: MetroNIDAZOLE 500 MG/100 ML 500 MG/100 ML BAG IVPB SCH ×2 (14:23→23:18)
[2018-03-03] MEDS ORDERED: Warfarin perPT PO PRN (18:00)
[2018-03-03] MEDS ORDERED: *HR* Warfarin 5 MG TABLET PO ONE (18:00)
[2018-03-04] MEDS: 0.9 % Sodium Chloride 1,000 ML IVC SCH (00:30)
[2018-03-04 06:44] LABS: INR 2.9; Prothrombin Time 32.6 Seconds (9.4-12.1)
[2018-03-04] MEDS: amLODIPine 5 MG TABLET PO SCH (09:16)
[2018-03-04] MEDS: MetroNIDAZOLE 500 MG/100 ML 500 MG/100 ML BAG IVPB SCH (09:16)
[2018-03-04] MEDS: Cholecalciferol (D-3) 1,000 UNIT TABLET PO SCH (09:16)
[2018-03-04] MEDS ORDERED: *HR* Warfarin 7.5 MG TABLET PO SCH (14:30)
[2018-03-04] MEDS ORDERED: Furosemide 20 MG TABLET PO SCH (14:30)
--- NOTE | 2018-03-04 14:32 | Internal Med Progress Note ---
Date of Encounter: 03/04/18 Time of Encounter: 14:28 - Assessment and plan (1) Pre-syncope Current Visit: Yes Status: Acute Assessment and plan: from a-fib with RVR, resolved (2) PAF (paroxysmal atrial fibrillation) Current Visit: Yes Status: Acute Assessment and plan: HR is well controlled, continue dofetilide, on coumadin (3) Essential (primary) hypertension Current Visit: Yes Status: Chronic Assessment and plan: contineu home meds (4) Gastroenteritis Current Visit: Yes Status: Acute Assessment and plan: likley from viral gastritis, resolved (5) DVT prophylaxis Current Visit: Yes Status: Acute Assessment and plan: on coumadin, INR 2.9 (6) Leukocytosis Current Visit: Yes Status: Acute Assessment and plan: will follow up am Qualifiers: Leukocytosis type: unspecified Qualified Code(s): D72.829 - Elevated white blood cell count, unspecified - Time Spent With Patient Total time spent is greater than 50% in coordination of care (as documented) at patient's floor/unit and/or counseling patient: - Subjective Interval history: Ms. Friedman is a 82 year old female with pmh of a fib and hypertension presentiong with complaints of feeling light headed while trying to get off the commode at 3am this morning and having call her and 911 for help who brought her to the ER. Patient notes she had some pizza last night after which she began to have nausea and vomiting followed by several episodes of diarrhea. She denies any fevers, chills or abdominal pain or any other acute symptoms. When she got to the ER due to light headedness, she was noted to be in afib with RVR with HR in the 130s. She refused a cardizem drip because she says it made her black out in the past, so she was given her home dose of dofetilide. Heart rate is currently in the 70s, but patient is still light headed patient was admitted for atrial fib with RVR which has resolved, nausea and diarrhea also resolved, she denies abdominal pain, abdomen is soft non-tender. leukocytosis will monitor ON, check WBC, discharge tomorrow. - Constitutional Vitals: Temp Pulse Resp BP Pulse Ox 97.9 F 60 17 138/78 98 03/04/18 07:43 03/04/18 07:43 03/04/18 07:43 03/04/18 07:43 03/04/18 07:43 General appearance: Present: A&O X 3, obese, answers questions appropriately Exam: CONSTITUTIONAL: patient appears as an age appropriate female in no acute distress. EYES Clear sclerae, bilateral pupils are equal, reactive to light. EMOI. RESPIRATORY: No accessory muscle use, bilateral clear to auscultation, no wheezing, no crackles/rales. CARDIOVASCULAR: Regular heart rate, normal S1 and S2, no murmurs GASTROINTESTINAL: bowel sounds present, soft, no tenderness. MUSCULOSKELETAL: Joints in normal range of motion, no clubbing, no edema, no cyanosis. Bilateral peripheral pulses 2+. NEUROLOGIC: CN II to XII are grossly intact, no focal neurological deficit. Internal Medicine: Result - ABG Interpretation ABG results: PT/INR, D-dimer PT 32.6 Seconds (9.4-12.1) H 03/04/18 06:26 Consult Discharge Plan - Plan Referrals: Frederic Lloyd DO [Primary Care Provider] -
[2018-03-04] MEDS ORDERED: *HR* Warfarin 2.5 MG TABLET PO ONE (18:00)
[2018-03-05 05:05] LABS: Basophils % 0.3 %; Eosinophils # 0.4 K/mcL (0.0-0.6); Eosinophils % 4.8 %; Hematocrit 36.1 % (35.3-44.9); Hemoglobin 11.3 g/dL (11.5-15.4); Immature Granulocytes % 0.3 % (0-4); Lymphocytes # 2.6 K/mcL (0.6-4.6); Lymphocytes % 34.2 %; Mean Corpuscular HGB Conc 31.3 g/dL (31.6-35.5); Mean Corpuscular Hemoglobin 29.4 pg (28.0-33.3); Mean Corpuscular Volume 93.8 fL (83.0-100.0); Mean Platelet Volume 9.4 fL (9.4-12.4); Monocytes # 0.7 K/mcL (0.0-1.3); Monocytes % 8.5 %; Platelet Count 226 K/mcL (140-400); Red Blood Count 3.85 M/mcL (3.82-4.97); Red Cell Distribution Width 14.2 % (11.5-14.5); Segmented Neutrophils % 51.9 %
[2018-03-05 05:10] LABS: INR 2.5
[2018-03-05 05:22] LABS: BUN/Creatinine Ratio 18 (6-26); Blood Urea Nitrogen 12 mg/dL (8-23); Calcium 9.1 mg/dL (8.6-10.3); Carbon Dioxide 27 mEq/L (23-29); Chloride 108 mEq/L (98-107); Glucose 95 mg/dL (70-105); Osmolality,Calculated 290 (280-300); Sodium 140 mEq/L (136-145); eGFR For African Americans > 60 (> 60); eGFR For Non-African Americans > 60 (> 60)
[2018-03-05] MEDS: Cholecalciferol (D-3) 1,000 UNIT TABLET PO SCH (09:48)
[2018-03-05] MEDS: amLODIPine 5 MG TABLET PO SCH (09:48)
[2018-03-05 11:39] VITALS: BP 133/57
[2018-03-05] MEDS ORDERED: *HR* Warfarin 5 MG TABLET PO SCH (13:11)
--- NOTE | 2018-03-05 13:50 | Discharge Summary ---
Orders not resulted at time of discharge: Pending orders 03/03/18 13:35 Culture,Blood [BC] Routine 03/06/18 04:00 INR/PT [Prothrombin Time INR] [COAG] AM 0400 INR/PT [Prothrombin Time INR] [COAG] AM 0400 03/07/18 04:00 INR/PT [Prothrombin Time INR] [COAG] AM 0400 INR/PT [Prothrombin Time INR] [COAG] AM 0400 03/08/18 04:00 INR/PT [Prothrombin Time INR] [COAG] AM 0400 INR/PT [Prothrombin Time INR] [COAG] AM 0400 03/09/18 04:00 INR/PT [Prothrombin Time INR] [COAG] AM 0400 Date of Encounter: 03/05/18 Time of Encounter: 13:48 - Discharge Diagnosis (1) Pre-syncope Priority: Secondary Status: Resolved (2) PAF (paroxysmal atrial fibrillation) Priority: Primary Status: Acute (3) Essential (primary) hypertension Priority: Secondary Status: Chronic (4) Gastroenteritis Priority: Secondary Status: Resolved (5) DVT prophylaxis Priority: Secondary Status: Acute (6) Leukocytosis Priority: Secondary Status: Resolved Qualifiers: Leukocytosis type: unspecified Qualified Code(s): D72.829 - Elevated white blood cell count, unspecified Hospital course: Ms. Friedman is a 82 year old female Ms. Friedman is a 82 year old female with pmh of a fib and hypertension presentiong with complaints of feeling light headed while trying to get off the commode at 3am this morning and having call her and 911 for help who brought her to the ER. Patient notes she had some pizza last night after which she began to have nausea and vomiting followed by several episodes of diarrhea. She denies any fevers, chills or abdominal pain or any other acute symptoms. When she got to the ER due to light headedness, she was noted to be in afib with RVR with HR in the 130s. She refused a cardizem drip because she says it made her black out in the past, so she was given her home dose of dofetilide. Heart rate is currently in the 70s, but patient is still light headed patient was admitted for atrial fib with RVR which has resolved, nausea and diarrhea also resolved, she denies abdominal pain, abdomen is soft non-tender. leukocytosis resolved. patient is discharged on stable condition and follow up with her own cardiology as scheduled (1) Pre-syncope Current Visit: Yes Status: Acute Assessment and plan: from a-fib with RVR, resolved (2) PAF (paroxysmal atrial fibrillation) is likley triggered by dehydration from gastritis, resolved Current Visit: Yes Status: Acute Assessment and plan: HR is well controlled, continue dofetilide, on coumadin (3) Essential (primary) hypertension Current Visit: Yes Status: Chronic Assessment and plan: contineu home meds (4) Gastroenteritis Current Visit: Yes Status: Acute Assessment and plan: likley from viral gastritis, resolved (5) DVT prophylaxis Current Visit: Yes Status: Acute Assessment and plan: on coumadin, INR 2.9 (6) Leukocytosis, resolved Qualifiers: Leukocytosis type: unspecified Qualified Code(s): D72.829 - Elevated white blood cell count, unspecified Discharge discussed with: patient Time spent discussing smoking cessation with patient: more than 10 minutes - Time Spent with Patient Total time spent providing and/or coordinating discharge services: Less than 30 minutes - Discharge Medications Home Medications: Amlodipine Besylate 10 mg PO DAILY 02/17/16 [History] Cholecalciferol (D-3) [Vitamin D] 1,000 unit PO DAILY 02/17/16 [History] Furosemide [Lasix] 20 mg PO Q48H 02/17/16 [History] Losartan Potassium [Cozaar] 100 mg PO DAILY 02/17/16 [History] Warfarin [Coumadin] 5 mg PO MOFR 02/17/16 [History] Warfarin [Coumadin] 7.5 mg PO SUTUWETHSA 02/17/16 [History] Docusate [Colace] 100 mg PO BID PRN 01/02/17 [History] Dofetilide [Tikosyn] 0.5 mg PO BID 03/31/17 [Rx] Carbidopa/Levodopa [Carbidopa-Levodopa 10-100 Tab] 1 tab PO TID 03/03/18 [ History] Allergies/Adverse Reactions: 3 Allergy/AdvReac Type Severity Reaction Status Date / Time codeine AdvReac Confusion Verified 01/02/17 08:22 diltiazem [From Cardizem] AdvReac Gastrointestinal Verified 01/02/17 08:22 Upset rofecoxib [From Vioxx] AdvReac See Verified 01/02/17 08:22 Comments Tanyhor-Ssw-Ekg Reductase AdvReac Muscle Pain Verified 01/02/17 08:22 Inhibitor [Statins] Date of admission: 03/03/18 10:12 Primary care physician: Frederic Lloyd DO - Constitutional Vitals: Temp Pulse Resp BP Pulse Ox 97.8 F 61 18 133/57 97 03/05/18 11:35 03/05/18 11:35 03/05/18 11:35 03/05/18 11:35 03/05/18 11:35 General appearance: Present: A&O X 3, obese, answers questions appropriately Exam: CONSTITUTIONAL: patient appears as an age appropriate female in no acute distress. EYES Clear sclerae, bilateral pupils are equal, reactive to light. EMOI. RESPIRATORY: No accessory muscle use, bilateral clear to auscultation, no wheezing, no crackles/rales. CARDIOVASCULAR: Regular heart rate, normal S1 and S2, no murmurs GASTROINTESTINAL: bowel sounds present, soft, no tenderness. MUSCULOSKELETAL: Joints in normal range of motion, no clubbing, no edema, no cyanosis. Bilateral peripheral pulses 2+. NEUROLOGIC: CN II to XII are grossly intact, no focal neurological deficit. - Patient Status Disposition: Home, Self-Care Condition: Good Functional capacity at discharge: independent ambulation Overall status at discharge: patient is back to baseline - Discharge Instructions Follow Up With: Frederic Lloyd DO [Primary Care Provider] - 03/12/18 10:00 am - Diet and Activity Diet: low fat, low cholesterol
[2018-03-05] MEDS ORDERED: *HR* Warfarin 5 MG TABLET PO ONE (18:00)
== END 2018-03-05 15:32 | disposition home or self-care (01) | DRG 310 ==
LOC: SUATTDRO 10:12 → 2NENU 10:12
PROVIDERS: ADMIT Student in an Organized Health Care Education/Training Program; ATTEND Hospitalist

== ENCOUNTER 2020-04-30 15:25 | Inpatient (IN) ==
[2020-04-30] MEDS ORDERED: Naloxone 0.4 MG/ML INJ IVP PRN (17:59)
[2020-04-30] MEDS ORDERED: Isovue-370 500 ML BOTTLE IVP ONE (18:01)
[2020-04-30] MEDS ORDERED: D5% in Water 1,000 ML IVC PRN (18:02)
[2020-04-30] MEDS ORDERED: *HR* Dextrose 50 % in Water (Vial) 50 ML VIAL IVP PRN (18:02)
[2020-04-30] MEDS ORDERED: Dextrose Gel 15 GM/37.5 ML TUBE PO PRN ×2 (18:02)
[2020-04-30] MEDS ORDERED: *HR* Phytonadione 10 MG/ML AMPUL SQ ONE (18:02)
[2020-04-30] MEDS ORDERED: 0.9 % Sodium Chloride 250 ML IVC SCH (18:15)
[2020-04-30] MEDS ORDERED: *HR* Labetalol 20 MG/4 ML SYRINGE IVP PRN (18:30)
[2020-04-30 19:07] LABS: Adenovirus Not Detected (Not Detect); Coronavirus 229E Not Detected (Not Detect); Coronavirus HKU1 Not Detected (Not Detect); Coronavirus NL63 Not Detected (Not Detect); Coronavirus OC43 Not Detected (Not Detect)
[2020-04-30 19:09] LABS: Bordetella Pertussis Not Detected (Not Detect); Chlamydophila pneumoniae Not Detected (Not Detect); Human Metapneumovirus Not Detected (Not Detect); Human Rhinovirus/Enterovirus Not Detected (Not Detect); Influenza A Subtype 2009 H1 Not Detected (Not Detect); Influenza B Not Detected (Not Detect); Mycoplasma pneumoniae Not Detected (Not Detect); Parainfluenza Virus 1 Not Detected (Not Detect); Parainfluenza Virus 2 Not Detected (Not Detect); Parainfluenza Virus 3 Not Detected (Not Detect); Parainfluenza Virus 4 Not Detected (Not Detect); Respiratory Syncytial Virus Not Detected (Not Detect); SARS-CoV-2 Not Detected (Not Detect)
[2020-04-30 20:56] LABS: Hemoglobin 6.6 g/dL (11.5-15.4); Immature Granulocytes % 0.4 % (0-4)
[2020-04-30 20:57] LABS: Basophils % 0.4 %; Eosinophils # 0.1 K/mcL (0.0-0.6); Eosinophils % 1.2 %; Hematocrit 23.3 % (35.3-44.9); Lymphocytes # 2.9 K/mcL (0.6-4.6); Lymphocytes % 30.9 %; Mean Corpuscular HGB Conc 28.3 g/dL (31.6-35.5); Mean Corpuscular Hemoglobin 20.3 pg (28.0-33.3); Mean Corpuscular Volume 71.7 fL (83.0-100.0); Mean Platelet Volume 9.6 fL (9.4-12.4); Monocytes # 0.7 K/mcL (0.0-1.3); Neutrophils # 5.5 K/mcL (1.6-8.9); Platelet Count 467 K/mcL (140-400); Red Blood Count 3.25 M/mcL (3.82-4.97); Red Cell Distribution Width 21.2 % (11.5-14.5); Segmented Neutrophils % 59.1 %; White Blood Count 9.3 K/mcL (4.3-11.1)
[2020-04-30 21:15] LABS: % Iron Saturation 4 % (15-50); Iron 19 mcg/dL (50-170); Transferrin 329 mg/dL (203-362)
[2020-04-30 21:17] LABS: Alanine Aminotransferase 8 Units/L (7-52); Albumin 3.6 g/dL (3.5-5.7); Albumin/Globulin Ratio 1.1 (1.1-2.2); Alkaline Phosphatase 56 Units/L (34-104); Aspartate Amino Transferase 13 Units/L (13-39); BUN/Creatinine Ratio 16 (6-26); Bilirubin,Total 0.6 mg/dL (0.3-1.0); Blood Urea Nitrogen 13 mg/dL (8-23); Carbon Dioxide 24 mEq/L (23-29); Chloride 101 mEq/L (98-107); Globulin 3.2 g/dL (2.4-3.5); Glucose 93 mg/dL (70-105); Osmolality,Calculated 274 (280-300); Potassium 4.8 mEq/L (3.5-5.1); Sodium 132 mEq/L (136-145); Total Protein 6.8 g/dL (6.4-8.9); eGFR For African Americans > 60 (> 60); eGFR For Non-African Americans > 60 (> 60)
[2020-04-30 21:36] LABS: Hypochromasia Present (Not Present); Polychromasia 1+ (Not Present)
[2020-04-30] MEDS: Pantoprazole 40 MG VIAL IVP SCH (23:00)
[2020-05-01] MEDS ORDERED: Lidocaine 4% CREAM (LMX) 5 GM TP PRN (00:03)
[2020-05-01] MEDS: Gabapentin 300 MG CAPSULE PO SCH ×3 (01:10→19:49)
[2020-05-01] MEDS: Insulin LISPRO 300 UNITS/3 ML VIAL SQ SCH ×5 (01:13→23:32)
[2020-05-01 03:50] LABS: Basophils % 0.5 %; Mean Corpuscular Volume 72.5 fL (83.0-100.0)
[2020-05-01 03:51] LABS: Prothrombin Time 34.5 Seconds (9.4-12.1)
[2020-05-01 03:52] LABS: Basophils # 0.1 K/mcL (0.0-0.2); Eosinophils # 0.1 K/mcL (0.0-0.6); Eosinophils % 1.2 %; Hematocrit 24.8 % (35.3-44.9); Immature Granulocytes % 0.4 % (0-4); Lymphocytes % 20.1 %; Mean Corpuscular HGB Conc 28.2 g/dL (31.6-35.5); Mean Corpuscular Hemoglobin 20.5 pg (28.0-33.3); Mean Platelet Volume 9.4 fL (9.4-12.4); Monocytes % 9.5 %; Neutrophils # 6.9 K/mcL (1.6-8.9); Nucleated Red Blood Cells 0.2 /100 WBC (0); Platelet Count 449 K/mcL (140-400); Red Blood Count 3.42 M/mcL (3.82-4.97); Red Cell Distribution Width 20.8 % (11.5-14.5); Segmented Neutrophils % 68.3 %; White Blood Count 10.1 K/mcL (4.3-11.1)
[2020-05-01 03:54] LABS: Activated Partial Thrombo Time 45.3 Seconds (26.0-36.0)
[2020-05-01 04:04] LABS: Phosphorous 2.8 mg/dL (2.7-4.5)
[2020-05-01 04:40] LABS: Anisocytosis 1+ (Not Present); Hypochromasia Present (Not Present); Microcytosis Present (Not Present); Platelet Estimate Normal (Normal)
[2020-05-01] MEDS: Pantoprazole 40 MG VIAL IVP SCH ×2 (05:28→18:34)
[2020-05-01] MEDS: Metoprolol XL (24 HR) Succ 25 MG TAB.ER.24H PO SCH (08:11)
[2020-05-01 09:36] LABS: Bilirubin,Urine Negative (Negative); Blood,Urine Negative (Negative); Clarity,Urine Clear (Clear); Color,Urine Light-Yellow (Yellow); Glucose,Urine (UA) Normal (Normal); Ketones,Urine Negative (Negative); Leukocyte Esterase,Urine Negative (Negative); Nitrite,Urine Negative (Negative); Protein,Urine Negative (Neg-Trace); Specific Gravity,Urine 1.015 (1.010-1.025); Urobilinogen,Urine Normal (Normal)
[2020-05-01 09:47] LABS: INR 2.5; Prothrombin Time 28.5 Seconds (9.4-12.1)
[2020-05-01] MEDS ORDERED: Isovue-370 500 ML BOTTLE IVP ONE (11:47)
[2020-05-01] MEDS ORDERED: Lidocaine -MPF 2% 5 ML VIAL SQ ONE (13:50)
[2020-05-01] MEDS ORDERED: *HR* Propofol 200 MG/20 ML VIAL IVP ONE (13:50)
[2020-05-01] MEDS ORDERED: *HR* Propofol 500 MG/50 ML BOTTLE IVP ONE (13:50)
[2020-05-01] MEDS ORDERED: *HR* Amiodarone Premix 360 MG/200 ML BAG IVC ONE (16:42)
[2020-05-01] MEDS ORDERED: Isovue-370 500 ML BOTTLE PO ONE (22:01)
[2020-05-01 23:00] LABS: Basophils # 0.1 K/mcL (0.0-0.2); Basophils % 0.5 %; Eosinophils # 0.1 K/mcL (0.0-0.6); Eosinophils % 0.8 %; Hematocrit 28.3 % (35.3-44.9); Hemoglobin 8.4 g/dL (11.5-15.4); Immature Granulocytes % 1.6 % (0-4); Lymphocytes # 3.5 K/mcL (0.6-4.6); Lymphocytes % 25.5 %; Mean Corpuscular HGB Conc 29.7 g/dL (31.6-35.5); Mean Corpuscular Hemoglobin 21.4 pg (28.0-33.3); Mean Corpuscular Volume 72.2 fL (83.0-100.0); Mean Platelet Volume 9.6 fL (9.4-12.4); Monocytes % 7.6 %; Neutrophils # 8.6 K/mcL (1.6-8.9); Platelet Count 313 K/mcL (140-400); Red Blood Count 3.92 M/mcL (3.82-4.97); Red Cell Distribution Width 21.2 % (11.5-14.5); White Blood Count 13.5 K/mcL (4.3-11.1)
[2020-05-01 23:09] LABS: Alanine Aminotransferase 22 Units/L (7-52); Albumin 3.1 g/dL (3.5-5.7); Albumin/Globulin Ratio 1.1 (1.1-2.2); Alkaline Phosphatase 54 Units/L (34-104); Aspartate Amino Transferase 27 Units/L (13-39); BUN/Creatinine Ratio 11 (6-26); Blood Urea Nitrogen 7 mg/dL (8-23); Calcium 8.4 mg/dL (8.6-10.3); Carbon Dioxide 22 mEq/L (23-29); Chloride 103 mEq/L (98-107); Globulin 2.9 g/dL (2.4-3.5); Glucose 129 mg/dL (70-105); Magnesium 1.9 mg/dL (1.6-2.6); Osmolality,Calculated 274 (280-300); Phosphorous 3.1 mg/dL (2.7-4.5); Potassium 4.3 mEq/L (3.5-5.1); Sodium 132 mEq/L (136-145); eGFR For African Americans > 60 (> 60); eGFR For Non-African Americans > 60 (> 60)
[2020-05-02] MEDS: Amiodarone Premix 360 MG/200 ML BAG IVC SCH ×2 (03:08→15:53)
[2020-05-02 05:07] LABS: Hemoglobin 8.3 g/dL (11.5-15.4); Immature Granulocytes % 0.7 % (0-4)
[2020-05-02 05:09] LABS: Basophils # 0.1 K/mcL (0.0-0.2); Basophils % 0.4 %; Eosinophils % 0.2 %; Hematocrit 29.1 % (35.3-44.9); Lymphocytes # 1.8 K/mcL (0.6-4.6); Lymphocytes % 10.6 %; Mean Corpuscular HGB Conc 28.5 g/dL (31.6-35.5); Mean Corpuscular Hemoglobin 21.2 pg (28.0-33.3); Mean Corpuscular Volume 74.4 fL (83.0-100.0); Mean Platelet Volume 9.4 fL (9.4-12.4); Neutrophils # 13.8 K/mcL (1.6-8.9); Platelet Count 472 K/mcL (140-400); Red Blood Count 3.91 M/mcL (3.82-4.97); Red Cell Distribution Width 21.6 % (11.5-14.5); Segmented Neutrophils % 82.1 %; White Blood Count 16.8 K/mcL (4.3-11.1)
[2020-05-02 05:33] LABS: BUN/Creatinine Ratio 10 (6-26); Blood Urea Nitrogen 7 mg/dL (8-23); Calcium 8.9 mg/dL (8.6-10.3); Carbon Dioxide 24 mEq/L (23-29); Chloride 103 mEq/L (98-107); Glucose 107 mg/dL (70-105); Osmolality,Calculated 274 (280-300); Potassium 4.4 mEq/L (3.5-5.1); Sodium 133 mEq/L (136-145); eGFR For African Americans > 60 (> 60); eGFR For Non-African Americans > 60 (> 60)
[2020-05-02 05:50] LABS: Anisocytosis 1+ (Not Present); Hypochromasia Present (Not Present)
[2020-05-02] MEDS: Insulin LISPRO 300 UNITS/3 ML VIAL SQ SCH ×4 (05:51→23:19)
[2020-05-02] MEDS: Pantoprazole 40 MG VIAL IVP SCH (05:58)
[2020-05-02] MEDS: Gabapentin 300 MG CAPSULE PO SCH ×2 (07:47→20:10)
[2020-05-02] MEDS: Metoprolol XL (24 HR) Succ 25 MG TAB.ER.24H PO SCH (07:47)
[2020-05-02] MEDS ORDERED: Perflutren Lipid Microsphere 1.3 ML in 0.9 % Sodium Chloride 8.7 ML IVP PRN (09:17)
[2020-05-03 03:02] LABS: Basophils % 0.3 %; Eosinophils # 0.2 K/mcL (0.0-0.6); Eosinophils % 1.3 %; Hemoglobin 7.9 g/dL (11.5-15.4); Immature Granulocytes % 0.8 % (0-4); Lymphocytes % 23.1 %; Mean Corpuscular HGB Conc 29.3 g/dL (31.6-35.5); Mean Corpuscular Hemoglobin 21.5 pg (28.0-33.3); Mean Corpuscular Volume 73.6 fL (83.0-100.0); Mean Platelet Volume 9.6 fL (9.4-12.4); Monocytes # 1.3 K/mcL (0.0-1.3); Monocytes % 10.3 %; Neutrophils # 8.3 K/mcL (1.6-8.9); Platelet Count 400 K/mcL (140-400); Red Blood Count 3.67 M/mcL (3.82-4.97); Red Cell Distribution Width 22.5 % (11.5-14.5); Segmented Neutrophils % 64.2 %; White Blood Count 12.9 K/mcL (4.3-11.1)
[2020-05-03 03:24] LABS: Alanine Aminotransferase 18 Units/L (7-52); Alkaline Phosphatase 48 Units/L (34-104); Aspartate Amino Transferase 33 Units/L (13-39); BUN/Creatinine Ratio 12 (6-26); Bilirubin,Total 0.8 mg/dL (0.3-1.0); Blood Urea Nitrogen 8 mg/dL (8-23); Calcium 8.8 mg/dL (8.6-10.3); Carbon Dioxide 25 mEq/L (23-29); Chloride 104 mEq/L (98-107); Globulin 2.9 g/dL (2.4-3.5); Glucose 100 mg/dL (70-105); Magnesium 2.5 mg/dL (1.6-2.6); Osmolality,Calculated 276 (280-300); Phosphorous 3.1 mg/dL (2.7-4.5); Potassium 4.8 mEq/L (3.5-5.1); Sodium 134 mEq/L (136-145); Total Protein 5.9 g/dL (6.4-8.9); eGFR For African Americans > 60 (> 60); eGFR For Non-African Americans > 60 (> 60)
[2020-05-03] MEDS: Amiodarone Premix 360 MG/200 ML BAG IVC SCH (04:04)
[2020-05-03] MEDS: Insulin LISPRO 300 UNITS/3 ML VIAL SQ SCH ×3 (05:34→18:33)
[2020-05-03] MEDS: Metoprolol XL (24 HR) Succ 25 MG TAB.ER.24H PO SCH (07:55)
[2020-05-03] MEDS: Gabapentin 300 MG CAPSULE PO SCH ×3 (07:55→21:21)
[2020-05-03] MEDS ORDERED: Gabapentin 300 MG CAPSULE PO SCH (09:00)
[2020-05-03] MEDS ORDERED: Amiodarone Premix 360 MG/200 ML BAG IVC SCH (09:38)
[2020-05-03] MEDS ORDERED: *HR* Dextrose 50 % in Water (Vial) 50 ML VIAL IVP PRN (09:38)
[2020-05-03] MEDS ORDERED: 0.9 % Sodium Chloride 250 ML IVC SCH (09:38)
[2020-05-03] MEDS ORDERED: D5% in Water 1,000 ML IVC PRN (09:38)
[2020-05-03] MEDS ORDERED: Perflutren Lipid Microsphere 1.3 ML in 0.9 % Sodium Chloride 8.7 ML IVP PRN (09:38)
[2020-05-03] MEDS ORDERED: Dextrose Gel 15 GM/37.5 ML TUBE PO PRN ×2 (09:38)
[2020-05-03] MEDS ORDERED: *HR* Labetalol 20 MG/4 ML SYRINGE IVP PRN (09:38)
[2020-05-03] MEDS ORDERED: Naloxone 0.4 MG/ML INJ IVP PRN (09:38)
[2020-05-03 14:07] LABS: Hematocrit 29.8 % (35.3-44.9); Hemoglobin 8.6 g/dL (11.5-15.4)
[2020-05-03 14:14] LABS: Activated Partial Thrombo Time 29.5 Seconds (26.0-36.0)
[2020-05-03 14:16] LABS: INR 1.2; Prothrombin Time 13.6 Seconds (9.4-12.1)
[2020-05-03] MEDS: Lidocaine 4% CREAM (LMX) 5 GM TP PRN (21:21)
[2020-05-03] MEDS: *HR* Amiodarone 200 MG TABLET PO SCH (21:21)
[2020-05-04] MEDS: Insulin LISPRO 300 UNITS/3 ML VIAL SQ SCH ×2 (00:58→07:21)
[2020-05-04 02:20] LABS: Basophils % 0.3 %; Eosinophils % 2.1 %; Hematocrit 28.9 % (35.3-44.9); Hemoglobin 8.4 g/dL (11.5-15.4); Immature Granulocytes % 0.7 % (0-4); Lymphocytes # 2.3 K/mcL (0.6-4.6); Lymphocytes % 19.5 %; Mean Corpuscular HGB Conc 29.1 g/dL (31.6-35.5); Mean Corpuscular Hemoglobin 22.3 pg (28.0-33.3); Mean Corpuscular Volume 76.7 fL (83.0-100.0); Mean Platelet Volume 8.6 fL (9.4-12.4); Monocytes % 11.5 %; Neutrophils # 7.7 K/mcL (1.6-8.9); Platelet Count 409 K/mcL (140-400); Red Blood Count 3.77 M/mcL (3.82-4.97); Red Cell Distribution Width 23.5 % (11.5-14.5); Segmented Neutrophils % 65.9 %; White Blood Count 11.7 K/mcL (4.3-11.1)
[2020-05-04 02:24] LABS: Eosinophils # 0.3 K/mcL (0.0-0.6); Monocytes # 1.4 K/mcL (0.0-1.3)
[2020-05-04 02:42] LABS: BUN/Creatinine Ratio 19 (6-26); Blood Urea Nitrogen 13 mg/dL (8-23); Calcium 8.3 mg/dL (8.6-10.3); Carbon Dioxide 26 mEq/L (23-29); Chloride 101 mEq/L (98-107); Glucose 92 mg/dL (70-105); Osmolality,Calculated 274 (280-300); Phosphorous 3.1 mg/dL (2.7-4.5); Potassium 4.6 mEq/L (3.5-5.1); Sodium 132 mEq/L (136-145); eGFR For African Americans > 60 (> 60); eGFR For Non-African Americans > 60 (> 60)
[2020-05-04 03:00] LABS: Anisocytosis 2+ (Not Present); Microcytosis Present (Not Present); Platelet Estimate Normal (Normal)
[2020-05-04] MEDS: amLODIPine 5 MG TABLET PO SCH (09:09)
[2020-05-04] MEDS: *HR* Amiodarone 200 MG TABLET PO SCH ×2 (09:09→20:19)
[2020-05-04] MEDS: Gabapentin 300 MG CAPSULE PO SCH ×3 (09:09→20:19)
[2020-05-04] MEDS: Metoprolol XL (24 HR) Succ 25 MG TAB.ER.24H PO SCH (09:10)
[2020-05-04] MEDS: Lidocaine 4% CREAM (LMX) 5 GM TP PRN (16:50)
[2020-05-05 05:58] LABS: Basophils % 0.3 %; Eosinophils % 2.3 %; Hemoglobin 7.5 g/dL (11.5-15.4); Mean Platelet Volume 8.7 fL (9.4-12.4)
[2020-05-05 06:00] LABS: Eosinophils # 0.2 K/mcL (0.0-0.6); Immature Granulocytes % 0.8 % (0-4); Lymphocytes # 2.3 K/mcL (0.6-4.6); Lymphocytes % 24.4 %; Mean Corpuscular HGB Conc 28.8 g/dL (31.6-35.5); Mean Corpuscular Volume 76.2 fL (83.0-100.0); Monocytes # 1.1 K/mcL (0.0-1.3); Monocytes % 11.8 %; Neutrophils # 5.8 K/mcL (1.6-8.9); Platelet Count 410 K/mcL (140-400); Red Blood Count 3.41 M/mcL (3.82-4.97); Red Cell Distribution Width 24.2 % (11.5-14.5); Segmented Neutrophils % 60.4 %; White Blood Count 9.6 K/mcL (4.3-11.1)
[2020-05-05 06:22] LABS: BUN/Creatinine Ratio 29 (6-26); Blood Urea Nitrogen 23 mg/dL (8-23); Calcium 8.7 mg/dL (8.6-10.3); Carbon Dioxide 26 mEq/L (23-29); Chloride 99 mEq/L (98-107); Glucose 98 mg/dL (70-105); Osmolality,Calculated 274 (280-300); Potassium 4.7 mEq/L (3.5-5.1); Sodium 130 mEq/L (136-145); eGFR For African Americans > 60 (> 60); eGFR For Non-African Americans > 60 (> 60)
[2020-05-05 06:37] LABS: Anisocytosis 1+ (Not Present); Hypochromasia Present (Not Present)
[2020-05-05 06:38] LABS: Platelet Estimate Normal (Normal)
[2020-05-05] MEDS: Gabapentin 300 MG CAPSULE PO SCH ×3 (08:51→21:19)
[2020-05-05] MEDS: Metoprolol XL (24 HR) Succ 25 MG TAB.ER.24H PO SCH (08:52)
[2020-05-05] MEDS: *HR* Amiodarone 200 MG TABLET PO SCH ×2 (08:52→21:19)
[2020-05-05] MEDS: amLODIPine 5 MG TABLET PO SCH (08:52)
[2020-05-05] MEDS: Erythromycin Susp 200 MG/5 ML UDC PO SCH ×3 (13:36→21:47)
[2020-05-05] MEDS ORDERED: Famotidine 20 MG/2 ML VIAL IVP ONE (21:34)
[2020-05-06] MEDS ORDERED: *HR* Metoprolol 5 MG/5 ML VIAL IVP ONE (00:03)
[2020-05-06 00:50] LABS: Basophils % 0.3 %; Eosinophils # 0.2 K/mcL (0.0-0.6); Eosinophils % 1.7 %; Hematocrit 30.7 % (35.3-44.9); Immature Granulocytes % 0.5 % (0-4); Lymphocytes # 1.8 K/mcL (0.6-4.6); Mean Corpuscular HGB Conc 29.6 g/dL (31.6-35.5); Mean Corpuscular Hemoglobin 22.6 pg (28.0-33.3); Mean Corpuscular Volume 76.4 fL (83.0-100.0); Mean Platelet Volume 8.4 fL (9.4-12.4); Monocytes # 1.3 K/mcL (0.0-1.3); Monocytes % 11.2 %; Platelet Count 408 K/mcL (140-400); Red Blood Count 4.02 M/mcL (3.82-4.97); Red Cell Distribution Width 23.1 % (11.5-14.5); Segmented Neutrophils % 70.3 %; White Blood Count 11.5 K/mcL (4.3-11.1)
[2020-05-06 00:56] LABS: Hemoglobin 9.1 g/dL (11.5-15.4); Neutrophils # 8.1 K/mcL (1.6-8.9)
[2020-05-06 01:11] LABS: BUN/Creatinine Ratio 21 (6-26); Blood Urea Nitrogen 14 mg/dL (8-23); Calcium 8.6 mg/dL (8.6-10.3); Carbon Dioxide 26 mEq/L (23-29); Chloride 101 mEq/L (98-107); Glucose 118 mg/dL (70-105); Osmolality,Calculated 278 (280-300); Potassium 3.9 mEq/L (3.5-5.1); Sodium 133 mEq/L (136-145); eGFR For African Americans > 60 (> 60); eGFR For Non-African Americans > 60 (> 60)
[2020-05-06 01:13] LABS: Troponin I < 0.03 ng/mL (< 0.04)
[2020-05-06 01:20] LABS: Anisocytosis 1+ (Not Present)
[2020-05-06 01:21] LABS: Hypochromasia Present (Not Present); Platelet Estimate Normal (Normal)
[2020-05-06] MEDS: Metoprolol XL (24 HR) Succ 25 MG TAB.ER.24H PO SCH (09:18)
[2020-05-06] MEDS: *HR* Amiodarone 200 MG TABLET PO SCH ×2 (09:18→21:42)
[2020-05-06] MEDS: Gabapentin 300 MG CAPSULE PO SCH ×3 (09:18→21:42)
[2020-05-06] MEDS: amLODIPine 5 MG TABLET PO SCH (09:18)
[2020-05-06] MEDS ORDERED: *HR* Rocuronium Bromide 50 MG/5 ML VIAL ONE ×2 (14:16→18:49)
[2020-05-06] MEDS ORDERED: Lidocaine -MPF 2% 2 ML VIAL ONE ×2 (14:16→18:49)
[2020-05-06] MEDS ORDERED: *HR* Succinylcholine 200 MG/10 ML VIAL IVP ONE ×2 (14:16→18:49)
[2020-05-06] MEDS ORDERED: Ondansetron 4 MG/2 ML VIAL ONE ×3 (14:16→18:49)
[2020-05-06] MEDS ORDERED: Dexamethasone 4 MG/ML VIAL ONE ×2 (14:16→18:49)
[2020-05-06] MEDS ORDERED: *HR* Propofol 200 MG/20 ML VIAL IVP ONE ×2 (14:17→18:49)
[2020-05-06] MEDS ORDERED: *HR* FentaNYL (PF) 100 MCG/2 ML VIAL ONE ×3 (14:17→19:02)
[2020-05-06] MEDS ORDERED: Famotidine 20 MG/2 ML VIAL IVP ONE ×2 (15:30→20:58)
[2020-05-06] MEDS ORDERED: cefOXitin 2,000 MG in Water for inj. (sterile) 20 ML IVP ONE (17:50)
[2020-05-06 18:06] LABS: ABG Base Excess 3 mEq/L (-2 to 3); ABG Chloride 101 mEq/L (98-107); ABG Glucose 99 mg/dL (60-95); ABG HCO3 27 mEq/L (21-27); ABG Ionized Calcium 1.27 mmol/L (1.15-1.35); ABG Oxygen Saturation 96 % (95-98); ABG PCO2 41 mmHg (35-45); ABG PH 7.43 pH Units (7.32-7.45); ABG PO2 79 mmHg (85-104); ABG TCO2 29 mEq/L (20-26)
[2020-05-06 18:13] LABS: ABG Base Excess 2 mEq/L (-2 to 3); ABG Chloride 101 mEq/L (98-107); ABG Glucose 96 mg/dL (60-95); ABG HCO3 26 mEq/L (21-27); ABG Ionized Calcium 1.25 mmol/L (1.15-1.35); ABG Oxygen Saturation 99 % (95-98); ABG PCO2 41 mmHg (35-45); ABG PH 7.42 pH Units (7.32-7.45); ABG PO2 138 mmHg (85-104); ABG TCO2 28 mEq/L (20-26)
[2020-05-06] MEDS ORDERED: *HR* PHENYLEPHRINE 1,000 MCG/10 ML SYRINGE IVP ONE (18:49)
[2020-05-06] MEDS ORDERED: CefOXitin 2,000 MG VIAL ONE (18:49)
[2020-05-06] MEDS ORDERED: Lidocaine HCL 4 ML Topical Solution (Laryng-O-Jet Kit Sterile Pak) TP ONE (18:49)
[2020-05-06] MEDS ORDERED: *HR* Phenylephrine 10 MG/ML VIAL ONE (18:49)
[2020-05-06] MEDS ORDERED: *HR* Labetalol 20 MG/4 ML SYRINGE IVP PRN (20:58)
[2020-05-06] MEDS ORDERED: 0.9 % Sodium Chloride 250 ML IVC SCH (20:58)
[2020-05-06] MEDS ORDERED: Dextrose Gel 15 GM/37.5 ML TUBE PO PRN ×2 (20:58)
[2020-05-06] MEDS ORDERED: *HR* Dextrose 50 % in Water (Vial) 50 ML VIAL IVP PRN (20:58)
[2020-05-06] MEDS ORDERED: Perflutren Lipid Microsphere 1.3 ML in 0.9 % Sodium Chloride 8.7 ML IVP PRN (20:58)
[2020-05-06] MEDS ORDERED: D5% in Water 1,000 ML IVC PRN (20:58)
[2020-05-06] MEDS ORDERED: Naloxone 0.4 MG/ML INJ IVP PRN (20:58)
[2020-05-06] MEDS ORDERED: 0.9 % Sodium Chloride 1,000 ML ONE (22:14)
[2020-05-06] MEDS: 0.9 % Sodium Chloride 1,000 ML IVC SCH (22:24)
[2020-05-06] MEDS: Acetaminophen IV 1,000 MG/100 ML INFUS..BTL IVPB SCH (23:46)
[2020-05-07 05:31] LABS: Basophils % 0.2 %; Hematocrit 30.9 % (35.3-44.9); Immature Granulocytes % 0.7 % (0-4); Lymphocytes % 4.3 %; Mean Corpuscular HGB Conc 29.1 g/dL (31.6-35.5); Mean Corpuscular Hemoglobin 22.7 pg (28.0-33.3); Mean Platelet Volume 8.6 fL (9.4-12.4); Monocytes # 0.6 K/mcL (0.0-1.3); Monocytes % 2.9 %; Platelet Count 430 K/mcL (140-400); Red Blood Count 3.96 M/mcL (3.82-4.97); Red Cell Distribution Width 23.3 % (11.5-14.5); Segmented Neutrophils % 91.9 %
[2020-05-07 05:41] LABS: Lymphocytes # 0.8 K/mcL (0.6-4.6); White Blood Count 19.6 K/mcL (4.3-11.1)
[2020-05-07 05:47] LABS: BUN/Creatinine Ratio 19 (6-26); Blood Urea Nitrogen 13 mg/dL (8-23); Calcium 8.5 mg/dL (8.6-10.3); Carbon Dioxide 25 mEq/L (23-29); Chloride 104 mEq/L (98-107); Glucose 139 mg/dL (70-105); Osmolality,Calculated 282 (280-300); Potassium 4.6 mEq/L (3.5-5.1); Sodium 135 mEq/L (136-145); eGFR For African Americans > 60 (> 60); eGFR For Non-African Americans > 60 (> 60)
[2020-05-07] MEDS: Acetaminophen IV 1,000 MG/100 ML INFUS..BTL IVPB SCH ×3 (06:05→17:52)
[2020-05-07 06:36] LABS: Anisocytosis 1+ (Not Present); Hypochromasia Present (Not Present); Platelet Estimate Normal (Normal)
[2020-05-07] MEDS: *HR* Amiodarone 200 MG TABLET PO SCH ×2 (09:02→20:18)
[2020-05-07] MEDS: Gabapentin 300 MG CAPSULE PO SCH ×3 (09:03→20:19)
[2020-05-07] MEDS: Metoprolol XL (24 HR) Succ 25 MG TAB.ER.24H PO SCH (09:03)
[2020-05-07] MEDS: amLODIPine 5 MG TABLET PO SCH (09:03)
[2020-05-07] MEDS: Lidocaine 4% CREAM (LMX) 5 GM TP PRN ×2 (11:08→20:21)
[2020-05-07] MEDS: 0.9 % Sodium Chloride 1,000 ML IVC SCH (12:16)
[2020-05-07] MEDS: Ketorolac 15 MG/ML VIAL IVP SCH ×2 (12:17→17:51)
[2020-05-08] MEDS: Acetaminophen IV 1,000 MG/100 ML INFUS..BTL IVPB SCH ×2 (00:02→06:06)
[2020-05-08] MEDS: Ketorolac 15 MG/ML VIAL IVP SCH ×4 (00:03→18:13)
[2020-05-08] MEDS: 0.9 % Sodium Chloride 1,000 ML IVC SCH (01:50)
[2020-05-08 05:32] LABS: Basophils % 0.3 %; Mean Platelet Volume 8.7 fL (9.4-12.4)
[2020-05-08 05:33] LABS: Eosinophils # 0.1 K/mcL (0.0-0.6); Eosinophils % 0.9 %; Hematocrit 29.9 % (35.3-44.9); Hemoglobin 8.7 g/dL (11.5-15.4); INR 1.3; Immature Granulocytes % 0.4 % (0-4); Lymphocytes % 17.4 %; Mean Corpuscular HGB Conc 29.1 g/dL (31.6-35.5); Mean Corpuscular Hemoglobin 22.9 pg (28.0-33.3); Mean Corpuscular Volume 78.7 fL (83.0-100.0); Monocytes # 0.8 K/mcL (0.0-1.3); Platelet Count 434 K/mcL (140-400); Prothrombin Time 14.9 Seconds (9.4-12.1); Red Cell Distribution Width 23.9 % (11.5-14.5); White Blood Count 11.3 K/mcL (4.3-11.1)
[2020-05-08 05:36] LABS: Activated Partial Thrombo Time 28.9 Seconds (26.0-36.0)
[2020-05-08 05:50] LABS: Neutrophils # 8.4 K/mcL (1.6-8.9)
[2020-05-08 05:54] LABS: BUN/Creatinine Ratio 18 (6-26); Blood Urea Nitrogen 14 mg/dL (8-23); Calcium 8.5 mg/dL (8.6-10.3); Carbon Dioxide 23 mEq/L (23-29); Chloride 100 mEq/L (98-107); Glucose 93 mg/dL (70-105); Osmolality,Calculated 274 (280-300); Potassium 4.2 mEq/L (3.5-5.1); Sodium 132 mEq/L (136-145); eGFR For African Americans > 60 (> 60); eGFR For Non-African Americans > 60 (> 60)
[2020-05-08] MEDS: *HR* Heparin 5,000 UNIT/ML VIAL SQ SCH ×2 (06:05→18:14)
[2020-05-08 06:25] LABS: Anisocytosis 1+ (Not Present); Hypochromasia Present (Not Present)
[2020-05-08 06:26] LABS: Microcytosis Present (Not Present)
[2020-05-08] MEDS: Gabapentin 300 MG CAPSULE PO SCH ×3 (10:47→21:39)
[2020-05-08] MEDS: amLODIPine 5 MG TABLET PO SCH (10:48)
[2020-05-08] MEDS: Metoprolol XL (24 HR) Succ 25 MG TAB.ER.24H PO SCH (10:48)
[2020-05-08] MEDS: *HR* Amiodarone 200 MG TABLET PO SCH ×2 (10:49→21:38)
[2020-05-08] MEDS: Acetaminophen 325 MG TABLET PO PRN (15:55)
[2020-05-09] MEDS: Ketorolac 15 MG/ML VIAL IVP SCH ×3 (00:15→11:50)
[2020-05-09] MEDS: *HR* Heparin 5,000 UNIT/ML VIAL SQ SCH ×2 (05:45→18:17)
[2020-05-09] MEDS: *HR* OxyCODONE/APAP 5/325 TABLET PO PRN (08:36)
[2020-05-09] MEDS: *HR* Amiodarone 200 MG TABLET PO SCH ×2 (08:37→21:10)
[2020-05-09] MEDS: Metoprolol XL (24 HR) Succ 25 MG TAB.ER.24H PO SCH (08:37)
[2020-05-09] MEDS: Gabapentin 300 MG CAPSULE PO SCH ×3 (08:37→21:10)
[2020-05-09] MEDS: amLODIPine 5 MG TABLET PO SCH (08:37)
[2020-05-09 08:45] LABS: Basophils # 0.1 K/mcL (0.0-0.2); Basophils % 0.7 %; Eosinophils # 0.3 K/mcL (0.0-0.6); Eosinophils % 2.9 %; Hematocrit 31.8 % (35.3-44.9); Hemoglobin 9.3 g/dL (11.5-15.4); Immature Granulocytes % 0.5 % (0-4); Lymphocytes # 1.8 K/mcL (0.6-4.6); Lymphocytes % 18.1 %; Mean Corpuscular HGB Conc 29.2 g/dL (31.6-35.5); Mean Corpuscular Hemoglobin 23.2 pg (28.0-33.3); Mean Corpuscular Volume 79.3 fL (83.0-100.0); Mean Platelet Volume 8.6 fL (9.4-12.4); Monocytes # 0.6 K/mcL (0.0-1.3); Monocytes % 6.4 %; Platelet Count 440 K/mcL (140-400); Red Blood Count 4.01 M/mcL (3.82-4.97); Red Cell Distribution Width 24.1 % (11.5-14.5); Segmented Neutrophils % 71.4 %
[2020-05-09 08:49] LABS: INR 1.2; Prothrombin Time 13.1 Seconds (9.4-12.1)
[2020-05-09 09:01] LABS: Neutrophils # 7.1 K/mcL (1.6-8.9)
[2020-05-09 09:02] LABS: Anisocytosis 2+ (Not Present); Platelet Estimate Normal (Normal)
[2020-05-09 09:07] LABS: BUN/Creatinine Ratio 16 (6-26); Blood Urea Nitrogen 12 mg/dL (8-23); Calcium 8.9 mg/dL (8.6-10.3); Carbon Dioxide 25 mEq/L (23-29); Chloride 106 mEq/L (98-107); Glucose 91 mg/dL (70-105); Osmolality,Calculated 281 (280-300); Potassium 4.4 mEq/L (3.5-5.1); Sodium 136 mEq/L (136-145); eGFR For African Americans > 60 (> 60); eGFR For Non-African Americans > 60 (> 60)
[2020-05-09] MEDS: Acetaminophen 325 MG TABLET PO PRN (16:50)
[2020-05-09] MEDS ORDERED: *HR* Warfarin 7.5 MG TABLET PO ONE (18:00)
[2020-05-09] MEDS ORDERED: Warfarin perPT PO PRN (18:00)
[2020-05-09] MEDS ORDERED: *HR* Warfarin 7.5 MG TABLET PO SCH (18:00)
[2020-05-10] MEDS: Lidocaine 4% CREAM (LMX) 5 GM TP PRN (00:35)
[2020-05-10] MEDS: *HR* OxyCODONE/APAP 5/325 TABLET PO PRN ×2 (00:38→17:26)
[2020-05-10] MEDS: *HR* Heparin 5,000 UNIT/ML VIAL SQ SCH ×2 (06:42→17:21)
[2020-05-10 08:55] LABS: Basophils % 0.6 %
[2020-05-10 08:57] LABS: Basophils # 0.1 K/mcL (0.0-0.2); Eosinophils # 0.3 K/mcL (0.0-0.6); Eosinophils % 3.4 %; Hematocrit 33.7 % (35.3-44.9); Hemoglobin 9.7 g/dL (11.5-15.4); Immature Granulocytes % 0.3 % (0-4); Lymphocytes # 2.2 K/mcL (0.6-4.6); Lymphocytes % 22.3 %; Mean Corpuscular HGB Conc 28.8 g/dL (31.6-35.5); Mean Corpuscular Hemoglobin 22.9 pg (28.0-33.3); Mean Corpuscular Volume 79.5 fL (83.0-100.0); Mean Platelet Volume 8.6 fL (9.4-12.4); Monocytes # 0.7 K/mcL (0.0-1.3); Monocytes % 7.2 %; Neutrophils # 6.4 K/mcL (1.6-8.9); Platelet Count 442 K/mcL (140-400); Red Blood Count 4.24 M/mcL (3.82-4.97); Red Cell Distribution Width 24.6 % (11.5-14.5); Segmented Neutrophils % 66.2 %; White Blood Count 9.7 K/mcL (4.3-11.1)
[2020-05-10 09:00] LABS: INR 1.2; Prothrombin Time 13.5 Seconds (9.4-12.1)
[2020-05-10 09:12] LABS: BUN/Creatinine Ratio 10 (6-26); Blood Urea Nitrogen 8 mg/dL (8-23); Calcium 8.8 mg/dL (8.6-10.3); Carbon Dioxide 27 mEq/L (23-29); Chloride 105 mEq/L (98-107); Glucose 101 mg/dL (70-105); Osmolality,Calculated 280 (280-300); Potassium 4.3 mEq/L (3.5-5.1); Sodium 136 mEq/L (136-145); eGFR For African Americans > 60 (> 60); eGFR For Non-African Americans > 60 (> 60)
[2020-05-10 09:29] LABS: Hypochromasia Present (Not Present)
[2020-05-10 09:30] LABS: Anisocytosis 2+ (Not Present); Poikilocytosis 1+ (Not Present); Target Cells 1+ (Not Present)
[2020-05-10] MEDS: amLODIPine 5 MG TABLET PO SCH (10:04)
[2020-05-10] MEDS: Gabapentin 300 MG CAPSULE PO SCH ×3 (10:04→20:28)
[2020-05-10] MEDS: *HR* Amiodarone 200 MG TABLET PO SCH ×2 (10:04→20:28)
[2020-05-10] MEDS: Metoprolol XL (24 HR) Succ 25 MG TAB.ER.24H PO SCH (10:04)
[2020-05-10] MEDS ORDERED: *HR* Warfarin 7.5 MG TABLET PO ONE (18:00)
[2020-05-11 05:33] LABS: Basophils # 0.1 K/mcL (0.0-0.2); Basophils % 0.6 %; Eosinophils # 0.3 K/mcL (0.0-0.6); Eosinophils % 3.2 %; Hematocrit 31.9 % (35.3-44.9); Hemoglobin 9.3 g/dL (11.5-15.4); Immature Granulocytes % 0.4 % (0-4); Lymphocytes % 24.4 %; Mean Corpuscular HGB Conc 29.2 g/dL (31.6-35.5); Mean Corpuscular Hemoglobin 23.1 pg (28.0-33.3); Mean Corpuscular Volume 79.2 fL (83.0-100.0); Mean Platelet Volume 8.7 fL (9.4-12.4); Monocytes # 0.8 K/mcL (0.0-1.3); Monocytes % 8.1 %; Neutrophils # 5.8 K/mcL (1.6-8.9); Platelet Count 431 K/mcL (140-400); Red Blood Count 4.03 M/mcL (3.82-4.97); Red Cell Distribution Width 24.8 % (11.5-14.5); Segmented Neutrophils % 63.3 %; White Blood Count 9.2 K/mcL (4.3-11.1)
[2020-05-11 05:41] LABS: Lymphocytes # 2.2 K/mcL (0.6-4.6)
[2020-05-11 05:42] LABS: INR 1.4; Prothrombin Time 15.9 Seconds (9.4-12.1)
[2020-05-11] MEDS: *HR* Heparin 5,000 UNIT/ML VIAL SQ SCH (05:47)
[2020-05-11 05:57] LABS: BUN/Creatinine Ratio 11 (6-26); Blood Urea Nitrogen 8 mg/dL (8-23); Calcium 8.8 mg/dL (8.6-10.3); Carbon Dioxide 27 mEq/L (23-29); Chloride 103 mEq/L (98-107); Glucose 88 mg/dL (70-105); Osmolality,Calculated 278 (280-300); Potassium 4.5 mEq/L (3.5-5.1); Sodium 135 mEq/L (136-145); eGFR For African Americans > 60 (> 60); eGFR For Non-African Americans > 60 (> 60)
[2020-05-11 06:13] LABS: Anisocytosis 3+ (Not Present); Hypochromasia Present (Not Present); Macrocytosis Present (Not Present); Microcytosis Present (Not Present); Platelet Estimate Increased (Normal)
[2020-05-11] MEDS: Metoprolol XL (24 HR) Succ 25 MG TAB.ER.24H PO SCH (08:46)
[2020-05-11] MEDS: amLODIPine 5 MG TABLET PO SCH (08:46)
[2020-05-11] MEDS: Gabapentin 300 MG CAPSULE PO SCH ×2 (08:46→14:41)
[2020-05-11] MEDS: *HR* Amiodarone 200 MG TABLET PO SCH (08:47)
[2020-05-11] MEDS: Lidocaine 4% CREAM (LMX) 5 GM TP PRN (08:47)
[2020-05-11] MEDS: *HR* OxyCODONE/APAP 5/325 TABLET PO PRN (08:51)
[2020-05-11 10:51] VITALS: BP 124/72
[2020-05-11] MEDS ORDERED: *HR* Warfarin 7.5 MG TABLET PO ONE (18:00)
== END 2020-05-11 16:38 | disposition critical access hospital (66) | DRG 329 ==
LOC: CDU → 2NNU 19:40 → SUATTDRO 05-01 15:45 → ICNU 05-01 22:22 → 2NNU 05-03 16:18 → 3ANU 05-05 17:59
PROVIDERS: ADMIT Internal Medicine; ATTEND Internal Medicine
PROC: ENDOEBX (2020-05-01 09:25)
PROC: ENDOCBX (2020-05-01 09:25)